=== PATIENT | male | born 1995 | race American Indian/Alaskan Native ===

== ENCOUNTER 2020-09-21 09:30 | Inpatient (IN) | payer SELFPAY ==
[2020-09-21] MEDS ORDERED: SODIUM CHLORIDE 0.9% 1000 ML 2,000 ML ONE (09:40)
[2020-09-21] MEDS ORDERED: fentaNYL 100 MCG/2 ML INJ IV ONE ×2 (09:56→11:50)
[2020-09-21] MEDS ORDERED: SODIUM CHLORIDE 0.9% 1000 ML 1,000 ML IV ONE (09:56)
[2020-09-21] MEDS ORDERED: ONDANSETRON 4 MG/2 ML INJ IV ONE (09:56)
--- NOTE | 2020-09-21 10:07 | Emergency Department Report ---
HPI - General Chief Complaint: Hyperglycemia Time Seen by Provider: 09/21/20 09:51 - HPI HPI: Room 7 The patient is a 25-year-old male present with a chief complaint of abdominal pain nausea vomiting. The patient has a history of type 1 diabetes and states he has been out of of his insulin for the past 1.5 days. Patient states this morning he developed midepigastric abdominal pain nausea and vomiting. The patient states he has been in DKA before and it feels the same way. ED Past Medical Hx - Past Medical History Hx Diabetes: Yes (Type 1) - Family History Family history: no significant - Social History Smoking Status: Never Smoker Substance Use Type: None (Denies illicit drug use) - Medications Home Medications: Home Medications Medication Instructions Recorded Confirmed Last Taken Type Insulin Aspart (Nf) [Novolog] 0 unit SQ AC 05/17/16 05/17/16 Unknown History Insulin Aspart Prot/Aspart(Nf) 18 units SQ QPM 05/17/16 05/17/16 05/15/16 History [NovoLOG Mix 70/30 VIAL] Insulin Aspart Prot/Aspart(Nf) 30 units SQ QAM 05/17/16 05/17/16 05/16/16 History [NovoLOG Mix 70/30 VIAL] Insulin NPH/Regular [NovoLIN 70/30] 18 unit SUB-Q QHS #30 units 05/19/16 Unknown Rx Insulin NPH/Regular [NovoLIN 70/30] 30 unit SUB-Q QAM #30 units 05/19/16 Unknown Rx ED Review of Systems ROS: Stated complaint: HIGH SUGAR/[place] Other details as noted in HPI Constitutional: no symptoms reported Eyes: denies: eye pain ENT: denies: throat pain Respiratory: no symptoms reported Cardiovascular: denies: chest pain Endocrine: no symptoms reported Gastrointestinal: abdominal pain, nausea, vomiting Musculoskeletal: denies: back pain Neurological: denies: headache Physical Exam - Physical Exam Vital Signs: Vital Signs 09/21/20 09:33 Temperature 97.8 F Pulse Rate 130 H Respiratory 28 H Rate Blood Pressure 142/100 O2 Sat by Pulse 100 Oximetry Physical Exam: GENERAL: The patient is well-developed well-nourished male lying on stretcher appearing to be in moderate discomfort. Patient vomiting frequently exhibiting Kussmaul's respiration HEENT: Normocephalic. Atraumatic. Extraocular motions are intact. NECK: Supple. Trachea midline CHEST/LUNGS: Clear to auscultation. Kussmaul respirations noted HEART/CARDIOVASCULAR: Regular. There is tachycardia. There is no gallop rub or murmur. ABDOMEN: Abdomen is soft, nontender. Patient has normal bowel sounds. There is no abdominal distention. SKIN: There is no rash. There is no edema. There is no diaphoresis. NEURO: The patient is awake, alert, and oriented. The patient is cooperative. The patient has normal speech MUSCULOSKELETAL: There is no evidence of acute injury. ED Course Vital Signs 09/21/20 09:33 Temperature 97.8 F Pulse Rate 130 H Respiratory 28 H Rate Blood Pressure 142/100 O2 Sat by Pulse 100 Oximetry ED Medical Decision Making - Lab Data Result diagrams: 09/21/20 10:13 09/21/20 10:13 Laboratory Tests 09/21/20 09/21/20 09/21/20 09:53 10:13 10:13 WBC 7.8 RBC 5.69 H Hgb 13.5 Hct 43.2 MCV 76 L MCH 24 L MCHC 31 L RDW 13.8 Plt Count 309 Lymph % (Auto) 23.5 [place] % (Auto) 4.0 Eos % (Auto) 0.4 Baso % (Auto) 0.6 Lymph # (Auto) 1.8 [place] # (Auto) 0.3 Eos # (Auto) 0.0 Baso # (Auto) 0.0 Seg Neutrophils % 71.5 H Seg Neutrophils # 5.6 VBG pH Sodium 138 Potassium 4.2 Chloride 97.3 L Carbon Dioxide 12 L Anion Gap 33 BUN 17 Creatinine 1.2 Estimated GFR > 60 BUN/Creatinine Ratio 14 Glucose 519 H* POC Glucose 395 H Calcium 10.2 Total Bilirubin 0.40 AST 15 ALT 20 Alkaline Phosphatase 134 H Total Creatine Kinase 84 CK-MB (CK-2) 1.4 CK-MB (CK-2) Rel Index 1.6 Troponin T < 0.010 Total Protein 9.0 H Albumin 4.2 Albumin/Globulin Ratio 0.9 Urine Color Urine Turbidity Urine pH Ur Specific [place] Urine Protein Urine Glucose (UA) Urine Ketones Urine Blood Urine Nitrite Urine Bilirubin Urine Urobilinogen Ur Leukocyte Esterase Urine WBC (Auto) Urine RBC (Auto) 09/21/20 09/21/20 10:13 Unknown WBC RBC Hgb Hct MCV MCH MCHC RDW Plt Count Lymph % (Auto) [place] % (Auto) Eos % (Auto) Baso % (Auto) Lymph # (Auto) [place] # (Auto) Eos # (Auto) Baso # (Auto) Seg Neutrophils % Seg Neutrophils # VBG pH 7.242 L Sodium Potassium Chloride Carbon Dioxide Anion Gap BUN Creatinine Estimated GFR BUN/Creatinine Ratio Glucose POC Glucose Calcium Total Bilirubin AST ALT Alkaline Phosphatase Total Creatine Kinase CK-MB (CK-2) CK-MB (CK-2) Rel Index Troponin T Total Protein Albumin Albumin/Globulin Ratio Urine Color Colorless Urine Turbidity Clear Urine pH 6.0 Ur Specific [place] 1.024 Urine Protein 100 mg/dl Urine Glucose (UA) >=500 Urine Ketones 80 Urine Blood Sm Urine Nitrite Neg Urine Bilirubin Neg Urine Urobilinogen < 2.0 Ur Leukocyte Esterase Neg Urine WBC (Auto) < 1.0 Urine RBC (Auto) 1.0 - Differential Diagnosis DKA, gastritis, hyperglycemia, UTI Critical care attestation.: If time is entered above; I have spent that time in minutes in the direct care of this critically ill patient, excluding procedure time. ED Disposition Clinical Impression: DKA (diabetic ketoacidoses) Disposition: - OP ADMIT IP TO THIS HOSP Is pt being admited?: Yes Does the pt Need Aspirin: No Condition: Fair Instructions: Diabetic Ketoacidosis (ED) Time of Disposition: 10:56 (Hospitalist paged (Dr Roman))
[2020-09-21 10:28] LABS: Basophils % (Auto) 0.6 % (0.0-1.8); Eosinophils % (Auto) 0.4 % (0.0-4.3); Hematocrit 43.2 % (35.5-45.6); Hemoglobin 13.5 gm/dl (11.8-15.2); Lymphocytes # (Auto) 1.8 K/mm3 (1.2-5.4); Lymphocytes % (Auto) 23.5 % (13.4-35.0); Mean Corpuscular HGB Conc 31 % (32-34); Mean Corpuscular Volume 76 fl (84-94); Monocytes # (Auto) 0.3 K/mm3 (0.0-0.8); Platelet Count 309 K/mm3 (140-440); Red Blood Count 5.69 M/mm3 (3.65-5.03); Red Cell Distribution Width 13.8 % (13.2-15.2)
[2020-09-21 10:50] LABS: Creatine Kinase MB 1.4 ng/mL (0.0-4.0)
[2020-09-21 10:51] LABS: Alanine Aminotransferase 20 units/L (7-56); Albumin 4.2 g/dL (3.9-5); BUN/Creatinine Ratio 14; Blood Urea Nitrogen 17 mg/dL (9-20); Calcium 10.2 mg/dL (8.4-10.2); Hemolysis Index 0
[2020-09-21] MEDS ORDERED: INSULIN REGULAR, HUMAN 100 UNITS in SODIUM CHLORIDE 0.9% 99 ML IV SCH (11:00)
[2020-09-21] MEDS ORDERED: METOCLOPRAMIDE 10 MG/2 ML INJ IV ONE (11:01)
[2020-09-21 11:29] LABS: Bilirubin,Urine NEG (Negative); Blood,Urine SM (Negative); Color,Urine Colorless (Yellow); Urobilinogen,Urine < 2.0 mg/dL (<2.0); WBC,Urine < 1.0 /HPF (0.0-6.0)
[2020-09-21 12:37] LABS: BUN/Creatinine Ratio 16; Blood Urea Nitrogen 18 mg/dL (9-20); Hemolysis Index 65
[2020-09-21] MEDS ORDERED: ACETAMINOPHEN 325 MG TAB PO PRN (13:06)
[2020-09-21] MEDS ORDERED: PROMETHAZINE 25 MG RECT SUPP PR PRN (13:06)
[2020-09-21] MEDS ORDERED: DEXTROSE 50% IN WATER (25GM) 50 ML SYRINGE IV PRN (13:08)
--- NOTE | 2020-09-21 13:20 | History and Physical Report ---
History of Present Illness Date of examination: 09/21/20 Date of admission: 09/21/20 10:57 Chief complaint: Abdominal pain nausea vomiting for 1 day. History of present illness: 23-year-old male with history of type 1 diabetes comes for high glucose levels. Patient states he missed his insulin for the past 2 days. Patient developed midepigastric and abdominal pain and nausea and vomiting. Patient states that he has had DKA in the past and feels like the same. His blood glucose levels have been elevated in the emergency room hence admission to the ICU for DKA The patient is a 25-year-old male present with a chief complaint of abdominal pain nausea vomiting. The patient has a history of type 1 diabetes and states he has been out of of his insulin for the past 1.5 days. Patient states this morning he developed midepigastric abdominal pain nausea and vomiting. The patient states he has been in DKA before and it feels the same way. Management. - Past Medical History Hx Diabetes: Yes (Type 1) - Family History Family history: no significant - Social History Smoking Status: Never Smoker Substance Use Type: None (Denies illicit drug use) - Medications Home Medications: Home Medications Medication Instructions Recorded Confirmed Last Taken Type Insulin Aspart (Nf) [Novolog] 0 unit SQ AC 05/17/16 05/17/16 Unknown History Insulin Aspart Prot/Aspart(Nf) 18 units SQ QPM 05/17/16 05/17/16 05/15/16 History [NovoLOG Mix 70/30 VIAL] Insulin Aspart Prot/Aspart(Nf) 30 units SQ QAM 05/17/16 05/17/16 05/16/16 History [NovoLOG Mix 70/30 VIAL] Insulin NPH/Regular [NovoLIN 70/30] 18 unit SUB-Q QHS #30 units 05/19/16 Unknown Rx Insulin NPH/Regular [NovoLIN 70/30] 30 unit SUB-Q QAM #30 units 05/19/16 Unknown Rx Review of Systems ROS: Stated complaint: HIGH SUGAR/[place] Other details as noted in HPI Constitutional: no symptoms reported Eyes: denies: eye pain ENT: denies: throat pain Respiratory: no symptoms reported Cardiovascular: denies: chest pain Endocrine: no symptoms reported Gastrointestinal: abdominal pain, nausea, vomiting Musculoskeletal: denies: back pain Neurological: denies: headache Medications and Allergies Allergies Allergy/AdvReac Type Severity Reaction Status Date / Time shellfish derived Allergy Swelling Verified 09/21/20 09:33 Home Medications Medication Instructions Recorded Confirmed Last Taken Type Insulin Aspart (Nf) [Novolog] 0 unit SQ AC 05/17/16 05/17/16 Unknown History Insulin Aspart Prot/Aspart(Nf) 18 units SQ QPM 05/17/16 05/17/16 05/15/16 Hist ory [NovoLOG Mix 70/30 VIAL] Insulin Aspart Prot/Aspart(Nf) 30 units SQ QAM 05/17/16 05/17/16 05/16/16 History [NovoLOG Mix 70/30 VIAL] Insulin NPH/Regular [NovoLIN 70/30] 18 unit SUB-Q QHS #30 units 05/19/16 Unknown Rx Insulin NPH/Regular [NovoLIN 70/30] 30 unit SUB-Q QAM #30 units 05/19/16 Unknown Rx Active Meds: Active Medications Insulin Human Regular 100 (units/ Sodium Chloride) 100 mls @ 6 mls/hr IV TITR MAURY; Protocol Last Admin: 09/21/20 11:50 Dose: 6 units/hr, 6 mls/hr Documented by: Exam - Constitutional Vitals: Temp Pulse Resp BP Pulse Ox 97.8 F 130 H 28 H 142/100 100 09/21/20 09:33 09/21/20 09:33 09/21/20 09:33 09/21/20 09:33 09/21/20 09:33 General appearance: Present: no acute distress, well-nourished - EENT Eyes: Present: PERRL ENT: hearing intact, clear oral mucosa - Neck Neck: Present: supple, normal ROM - Respiratory Respiratory effort: normal Respiratory: bilateral: CTA - Cardiovascular Heart rate: 88 Rhythm: regular Heart Sounds: Present: S1 & S2. Absent: rub, click - Extremities Extremities: pulses symmetrical, No edema Peripheral Pulses: within normal limits - Abdominal General gastrointestinal: Present: soft, non-tender, non-distended, normal bowel sounds Male genitourinary: Present: normal - Rectal Rectal Exam: deferred - Integumentary Integumentary: Present: clear, warm, dry - Musculoskeletal Musculoskeletal: gait normal, strength equal bilaterally - Psychiatric Psychiatric: appropriate mood/affect, intact judgment & insight - Neurologic Neurologic: CNII-XII intact, moves all extremities - Allied Health Allied health notes reviewed: nursing, case management HEART Score - HEART Score Troponin: Troponin T < 0.010 ng/mL (0.00-0.029) 09/21/20 10:13 Results - Labs CBC & Chem 7: 09/21/20 10:13 09/21/20 20:53 Labs: Laboratory Last Values WBC 7.8 K/mm3 (4.5-11.0) 09/21/20 10:13 RBC 5.69 M/mm3 (3.65-5.03) H 09/21/20 10:13 Hgb 13.5 gm/dl (11.8-15.2) 09/21/20 10:13 Hct 43.2 % (35.5-45.6) 09/21/20 10:13 MCV 76 fl (84-94) L 09/21/20 10:13 MCH 24 pg (28-32) L 09/21/20 10:13 MCHC 31 % (32-34) L 09/21/20 10:13 RDW 13.8 % (13.2-15.2) 09/21/20 10:13 Plt Count 309 K/mm3 (140-440) 09/21/20 10:13 Lymph % (Auto) 23.5 % (13.4-35.0) 09/21/20 10:13 [place] % (Auto) 4.0 % (0.0-7.3) 09/21/20 10:13 Eos % (Auto) 0.4 % (0.0-4.3) 09/21/20 10:13 Baso % (Auto) 0.6 % (0.0-1.8) 09/21/20 10:13 Lymph # (Auto) 1.8 K/mm3 (1.2-5.4) 09/21/20 10:13 [place] # (Auto) 0.3 K/mm3 (0.0-0.8) 09/21/20 10:13 Eos # (Auto) 0.0 K/mm3 (0.0-0.4) 09/21/20 10:13 Baso # (Auto) 0.0 K/mm3 (0.0-0.1) 09/21/20 10:13 Seg Neutrophils % 71.5 % (40.0-70.0) H 09/21/20 10:13 Seg Neutrophils # 5.6 K/mm3 (1.8-7.7) 09/21/20 10:13 VBG pH 7.242 (7.320-7.420) L 09/21/20 10:13 Sodium 138 mmol/L (137-145) 09/21/20 11:45 Potassium TNR 09/21/20 11:45 Chloride 100.1 mmol/L (98-107) 09/21/20 11:45 Carbon Dioxide TNR 09/21/20 11:45 Anion Gap TNR 09/21/20 11:45 BUN 18 mg/dL (9-20) 09/21/20 11:45 Creatinine 1.1 mg/dL (0.8-1.3) 09/21/20 11:45 Estimated GFR > 60 ml/min 09/21/20 11:45 BUN/Creatinine Ratio 16 % 09/21/20 11:45 Glucose 494 mg/dL (75-100) H 09/21/20 11:45 POC Glucose 395 mg/dL (70-105) H 09/21/20 09:53 Ketones Quantitative Small (Negative) 09/21/20 10:13 Calcium 10.0 mg/dL (8.4-10.2) 09/21/20 11:45 Phosphorus 4.30 mg/dL (2.5-4.5) 09/21/20 11:45 Magnesium 2.20 mg/dL (1.7-2.3) 09/21/20 11:45 Total Bilirubin 0.40 mg/dL (0.1-1.2) 09/21/20 10:13 AST 15 units/L (5-40) 09/21/20 10:13 ALT 20 units/L (7-56) 09/21/20 10:13 Alkaline Phosphatase 134 units/L (35-129) H 09/21/20 10:13 Total Creatine Kinase 84 units/L (55-170) 09/21/20 10:13 CK-MB (CK-2) 1.4 ng/mL (0.0-4.0) 09/21/20 10:13 CK-MB (CK-2) Rel Index 1.6 (0-4) 09/21/20 10:13 Troponin T < 0.010 ng/mL (0.00-0.029) 09/21/20 10:13 Total Protein 9.0 g/dL (6.3-8.2) H 09/21/20 10:13 Albumin 4.2 g/dL (3.9-5) 09/21/20 10:13 Albumin/Globulin Ratio 0.9 % 09/21/20 10:13 Urine Color Colorless (Yellow) 09/21/20 Unknown Urine Turbidity Clear (Clear) 09/21/20 Unknown Urine pH 6.0 (5.0-7.0) 09/21/20 Unknown Ur Specific [place] 1.024 (1.003-1.030) 09/21/20 Unknown Urine Protein 100 mg/dl mg/dL (Negative) 09/21/20 Unknown Urine Glucose (UA) >=500 mg/dL (Negative) 09/21/20 Unknown Urine Ketones 80 mg/dL (Negative) 09/21/20 Unknown Urine Blood Sm (Negative) 09/21/20 Unknown Urine Nitrite Neg (Negative) 09/21/20 Unknown Urine Bilirubin Neg (Negative) 09/21/20 Unknown Urine Urobilinogen < 2.0 mg/dL (<2.0) 09/21/20 Unknown Ur Leukocyte Esterase Neg (Negative) 09/21/20 Unknown Urine WBC (Auto) < 1.0 /HPF (0.0-6.0) 09/21/20 Unknown Urine RBC (Auto) 1.0 /HPF (0.0-6.0) 09/21/20 Unknown Short CBC 09/21/20 Range/Units 10:13 WBC 7.8 (4.5-11.0) K/mm3 Hgb 13.5 (11.8-15.2) gm/dl Hct 43.2 (35.5-45.6) % Plt Count 309 (140-440) K/mm3 BMP 09/21/20 09/21/20 10:13 11:45 Sodium 138 138 Potassium 4.2 TNR Chloride 97.3 L 100.1 Carbon Dioxide 12 L TNR BUN 17 18 Creatinine 1.2 1.1 Glucose 519 H* 494 H Calcium 10.2 10.0 Cardiac Enzymes 09/21/20 Range/Units 10:13 Total Creatine Kinase 84 (55-170) units/L CK-MB (CK-2) 1.4 (0.0-4.0) ng/mL Troponin T < 0.010 (0.00-0.029) ng/mL Liver Function 09/21/20 Range/Units 10:13 Total Bilirubin 0.40 (0.1-1.2) mg/dL AST 15 (5-40) units/L ALT 20 (7-56) units/L Alkaline Phosphatase 134 H (35-129) units/L Albumin 4.2 (3.9-5) g/dL Urine 09/21/20 Range/Units Unknown Urine Color Colorless (Yellow) Urine pH 6.0 (5.0-7.0) Ur Specific [place] 1.024 (1.003-1.030) Urine Protein 100 mg/dl (Negative) mg/dL Urine Glucose (UA) >=500 (Negative) mg/dL Short CBC 09/21/20 Range/Units 10:13 WBC 7.8 (4.5-11.0) K/mm3 Hgb 13.5 (11.8-15.2) gm/dl Hct 43.2 (35.5-45.6) % Plt Count 309 (140-440) K/mm3 BMP 09/21/20 09/21/20 09/21/20 10:13 11:45 15:31 Sodium 138 138 146 H D Potassium 4.2 TNR 4.5 Chloride 97.3 L 100.1 109.7 H Carbon Dioxide 12 L TNR 18 L BUN 17 18 18 Creatinine 1.2 1.1 1.1 Glucose 519 H* 494 H 218 H Calcium 10.2 10.0 9.8 09/21/20 09/21/20 09/21/20 17:16 19:11 20:53 Sodium 144 143 142 Potassium 4.5 4.8 5.0 Chloride 110.1 H 109.2 H 111.8 H Carbon Dioxide 15 L 15 L 14 L BUN 17 16 16 Creatinine 1.1 0.9 1.0 Glucose 160 H 213 H 219 H Calcium 9.8 9.7 9.7 Cardiac Enzymes 09/21/20 Range/Units 10:13 Total Creatine Kinase 84 (55-170) units/L CK-MB (CK-2) 1.4 (0.0-4.0) ng/mL Troponin T < 0.010 (0.00-0.029) ng/mL Liver Function 09/21/20 Range/Units 10:13 Total Bilirubin 0.40 (0.1-1.2) mg/dL AST 15 (5-40) units/L ALT 20 (7-56) units/L Alkaline Phosphatase 134 H (35-129) units/L Albumin 4.2 (3.9-5) g/dL Urine 09/21/20 Range/Units Unknown Urine Color Colorless (Yellow) Urine pH 6.0 (5.0-7.0) Ur Specific [place] 1.024 (1.003-1.030) Urine Protein 100 mg/dl (Negative) mg/dL Urine Glucose (UA) >=500 (Negative) mg/dL Assessment and Plan Assessment and plan: The high probability OF a clinically significant sudden or life-threatening deterioration of the cardiorespiratory system and endocrine system required my full and direct attention, intervention and postoperative management. The aggregate critical care time was 32 minutes. The time is in addition to time spent performing reported procedures but includes the followin: Data review and interpretation 2: Patient assessment and monitoring of vital signs 3: Documentation 4:: Medication orders and management Advance Directives: Yes (Full code) VTE prophylaxis?: Chemical Plan of care discussed with patient/family: Yes - Patient Problems (1) DKA (diabetic ketoacidoses) Current Visit: Yes Status: Acute Qualifiers: Diabetes mellitus type: type 1 Plan to address problem: DKA protocol IV insulin IV fluids Check hemoglobin A1c Emergency Medicine Physician consult Dietitian consult (2) Metabolic acidosis Current Visit: Yes Status: Acute Plan to address problem: IV normal saline (3) DVT prophylaxis Current Visit: Yes Status: Acute Plan to address problem: On heparin and GI prophylaxis
[2020-09-21] MEDS: INSULIN REGULAR, HUMAN 100 UNITS in SODIUM CHLORIDE 0.9% 99 ML IV SCH (14:00)
[2020-09-21] MEDS ORDERED: POTASSIUM CHLORIDE 10 MEQ 10 MEQ/100 ML BAG IV PRN (14:00)
[2020-09-21] MEDS ORDERED: METOCLOPRAMIDE 10 MG/2 ML INJ ONE (14:03)
[2020-09-21] MEDS ORDERED: FAMOTIDINE 20 MG/2 ML INJ IV ONE (14:45)
[2020-09-21] MEDS ORDERED: SODIUM CHLORIDE 0.9% 1000 ML 1,000 ML ONE (14:46)
[2020-09-21] MEDS ORDERED: POTASSIUM CHLORIDE 10 MEQ 0 MEQ/0 ML BAG IV ONE (14:46)
[2020-09-21] MEDS: FAMOTIDINE 20 MG/2 ML INJ IV SCH (15:07)
[2020-09-21] MEDS: D5W/0.45% NACL/KCL 20 MEQ 20 MEQ/1,000 ML BAG IV SCH (16:00)
[2020-09-21 16:14] LABS: BUN/Creatinine Ratio 16; Blood Urea Nitrogen 18 mg/dL (9-20); Calcium 9.8 mg/dL (8.4-10.2); Hemolysis Index 2
[2020-09-21] MEDS ORDERED: D5W/0.45% NACL/KCL 20 MEQ 20 MEQ/1,000 ML BAG IV ONE (16:18)
[2020-09-21] MEDS ORDERED: HYDROmorphone 1 MG/1 ML INJ ONE ×2 (17:19→23:33)
[2020-09-21 17:50] LABS: BUN/Creatinine Ratio 15; Blood Urea Nitrogen 17 mg/dL (9-20); Calcium 9.8 mg/dL (8.4-10.2); Hemolysis Index 9
[2020-09-21] MEDS: HYDROmorphone 1 MG/1 ML INJ IV PRN ×2 (18:00→23:52)
[2020-09-21 19:44] LABS: BUN/Creatinine Ratio 18; Blood Urea Nitrogen 16 mg/dL (9-20); Calcium 9.7 mg/dL (8.4-10.2); Hemolysis Index 5
[2020-09-21 21:36] LABS: BUN/Creatinine Ratio 16; Blood Urea Nitrogen 16 mg/dL (9-20); Calcium 9.7 mg/dL (8.4-10.2); Hemolysis Index 22
[2020-09-21] MEDS ORDERED: ONDANSETRON 4 MG/2 ML INJ ONE (23:33)
[2020-09-21] MEDS: ONDANSETRON 4 MG/2 ML INJ IV PRN (23:54)
[2020-09-22] MEDS ORDERED: D5W/0.45% NACL/KCL 20 MEQ 20 MEQ/1,000 ML BAG IV ONE ×2 (02:57→11:55)
[2020-09-22] MEDS: D5W/0.45% NACL/KCL 20 MEQ 20 MEQ/1,000 ML BAG IV SCH ×2 (03:20→10:58)
[2020-09-22 03:52] LABS: BUN/Creatinine Ratio 15; Blood Urea Nitrogen 17 mg/dL (9-20); Calcium 9.9 mg/dL (8.4-10.2); Hemolysis Index 7
[2020-09-22] MEDS ORDERED: ONDANSETRON 4 MG/2 ML INJ ONE ×2 (05:11→11:05)
[2020-09-22] MEDS ORDERED: HYDROmorphone 1 MG/1 ML INJ ONE ×4 (05:11→12:34)
[2020-09-22] MEDS: ONDANSETRON 4 MG/2 ML INJ IV PRN (05:15)
[2020-09-22] MEDS: HYDROmorphone 1 MG/1 ML INJ IV PRN ×3 (05:15→14:38)
[2020-09-22 05:32] LABS: BUN/Creatinine Ratio 18; Blood Urea Nitrogen 16 mg/dL (9-20); Calcium 9.8 mg/dL (8.4-10.2); Hemolysis Index 11
[2020-09-22] MEDS: FAMOTIDINE 20 MG/2 ML INJ IV SCH ×2 (06:29→11:05)
[2020-09-22] MEDS ORDERED: DEXTROSE 50% IN WATER (25GM) 50 ML SYRINGE IV PRN (09:30)
[2020-09-22] MEDS ORDERED: INSULIN GLARGINE 100 UNITS/ML SUB-Q SCH (09:30)
[2020-09-22] MEDS ORDERED: INSULIN LISPRO 100 UNIT/ML VIAL 3 mL SUB-Q ONE (09:50)
[2020-09-22] MEDS: INSULIN LISPRO 100 UNIT/ML VIAL 3 mL SUB-Q SCH ×2 (10:30→12:00)
[2020-09-22] MEDS: INSULIN REGULAR, HUMAN 100 UNITS in SODIUM CHLORIDE 0.9% 99 ML IV SCH (11:02)
[2020-09-22] MEDS ORDERED: FAMOTIDINE 20 MG/2 ML INJ IV ONE (11:06)
[2020-09-22] MEDS ORDERED: INSULIN LISPRO 100 UNIT/ML VIAL 3 mL SUB-Q SCH (11:30)
[2020-09-22] MEDS ORDERED: D5W IV ONE (11:54)
[2020-09-22] MEDS ORDERED: NACL IV ONE (11:54)
[2020-09-22 12:08] LABS: BUN/Creatinine Ratio 17; Blood Urea Nitrogen 15 mg/dL (9-20); Calcium 9.5 mg/dL (8.4-10.2); Hemolysis Index 82
[2020-09-22 12:17] VITALS: BP 150/92
--- NOTE | 2020-09-22 13:08 | Discharge Summary ---
Providers - Providers Date of Admission: 09/21/20 10:57 Attending physician: TIANNA DIAZ 09/21/20 13:06 Consult to Physician [CONS] Routine Comment: Consulting Provider: FRANCK HELMS Physician Instructions: Reason For Exam: DKA 09/21/20 13:08 Consult to Dietitian/Nutrition [CONS] Routine Physician Instructions: Reason For Exam: DKA Reason for Consult: Nutrition Recommendations Reason for Consult: Diet education Primary care physician: TELEPHONE OPERATOR Hospitalization Condition: Fair Disposition: DC-30 STILL A PATIENT Exam - Constitutional Vitals: Temp Pulse Resp BP Pulse Ox 97.8 F 88 18 150/92 100 09/21/20 09:33 09/22/20 12:14 09/22/20 12:14 09/22/20 12:14 09/22/20 12:14 Plan Follow up with: PRIMARY CARE, [Primary Care Provider] - 3-5 Days Prescriptions: Syringe-Needle,Insulin,0.5 ml [Insulin Syringe/Needle 0.5 ML] 1 each MC TID #1 box Insulin NPH/Regular [Novolin 70/30] 10 unit SUB-Q TIDAC #1 vial
[2020-09-22] MEDS ORDERED: SODIUM BICARB 8.4% 50 MEQ/50 ML SYRINGE IV ONE ×2 (14:00→14:22)
[2020-09-22 15:00] LABS: BUN/Creatinine Ratio 16; Blood Urea Nitrogen 14 mg/dL (9-20); Calcium 9.3 mg/dL (8.4-10.2); Hemolysis Index 8
== END 2020-09-22 16:00 | disposition home or self-care (01) | DRG 639 ==
LOC: ED 09:30 → CC1 10:57 → 3A 09-22 13:08
PROVIDERS: ADMIT Internal Medicine; ATTEND Internal Medicine
DX: E11.10 Type 2 diabetes mellitus with ketoacidosis without coma (principal); Z91.013 Allergy to seafood; Z79.4 Long term (current) use of insulin
CPT/HCPCS: 36415; 80048; 80053; 81001; 82010; 82550; 82553; 82805; 82962; 83036; 83735; 84100; 84484; 85025; G0378; J1170; J1815; J2405; J2765; J3010; J3480; J7030

== ENCOUNTER 2021-03-17 20:40 | Emergency (ER) | payer BC ==
[2021-03-17] MEDS ORDERED: ONDANSETRON 4 MG/2 ML INJ IV ONE (20:50)
[2021-03-17] MEDS ORDERED: SODIUM CHLORIDE 0.9% 1000 ML 1,000 ML IV ONE (20:50)
--- NOTE | 2021-03-17 20:50 | Event Note ---
ED Screening Note Date of service: 03/17/21 Time: 20:49 ED Screening Note: 25-year-old male with a past medical history of type 1 diabetes currently on insulin and history of DKA and HTN presents to the ER today with complaints of nausea, vomiting and abdominal pain since this morning This initial assessment/diagnostic orders/clinical plan/treatment(s) is/are subject to change based on patients health status, clinical progression and re- assessment by fellow clinical providers in the ED. Further treatment and workup at subsequent clinical providers discretion. Patient/guardian urged not to elope from the ED as their condition may be serious if not clinically assessed and managed. Initial orders include: Labs
[2021-03-17 21:04] LABS: Basophils # (Auto) 0.1 K/mm3 (0.0-0.1); Basophils % (Auto) 0.9 % (0.0-1.8); Eosinophils # (Auto) 0.1 K/mm3 (0.0-0.4); Eosinophils % (Auto) 1.1 % (0.0-4.3); Hematocrit 40.8 % (35.5-45.6); Hemoglobin 13.1 gm/dl (11.8-15.2); Lymphocytes # (Auto) 2.3 K/mm3 (1.2-5.4); Lymphocytes % (Auto) 25.2 % (13.4-35.0); Mean Corpuscular HGB Conc 32 % (32-34); Mean Corpuscular Volume 74 fl (84-94); Monocytes # (Auto) 0.6 K/mm3 (0.0-0.8); Monocytes % (Auto) 6.8 % (0.0-7.3); Platelet Count 405 K/mm3 (140-440); Red Blood Count 5.48 M/mm3 (3.65-5.03); Red Cell Distribution Width 13.5 % (13.2-15.2)
[2021-03-17] MEDS ORDERED: HYDROmorphone 1 MG/1 ML INJ IV ONE (21:20)
[2021-03-17] MEDS ORDERED: METOCLOPRAMIDE 10 MG/2 ML INJ IV ONE (21:20)
--- NOTE | 2021-03-17 21:22 | Emergency Department Report ---
ED General Adult HPI - General Chief complaint: Nausea/Vomiting/Diarrhea Stated complaint: NAUSEA/VOMITING/STOMACH PAIN PUI?: No Time Seen by Provider: 03/17/21 20:48 Source: patient, EMS ( EMS documentation not available at time of chart dictation ), old records reviewed Mode of arrival: Ambulatory Limitations: No Limitations - History of Present Illness Initial comments: The patient was evaluated in the emergency department for symptoms described in the history of present illness. He/she was evaluated in the context of the global COVID-19 pandemic, which necessitated consideration that the patient might be at risk for infection with the virus that causes COVID-19. Institutional protocols and algorithms that pertain to the evaluation of patients at risk for COVID-19 are in a state of rapid change based on informatio n released by regulatory bodies including the CDC and federal and state organizations. These policies and algorithms were followed during the patient's care in the emergency department. Please note that these policies, procedures and recommendations changed on a rapid basis. Patient is a 25-year-old gentleman. He has a history of type 1 diabetes. Recent hemoglobin A1c 13. He also has a history of noncompliance. He presents to the ER today with a complaint of abdominal cramping, nausea vomiting, sweating, malaise and fatigue. No fever. Mild headache. No loss of taste or smell. No urinary symptoms. No testicular pain. Does not have a diagnosis of gastroparesis that he is aware of. He subjectively feels like he is in diabetic ketoacidosis. His symptoms were much improved in the emergency room with pain medication and nausea medication. -: Gradual, days(s) Location: head, abdomen Quality: aching Consistency: constant Improves with: medication Worsens with: movement - Related Data Home Medications Medication Instructions Recorded Confirmed Last Taken Insulin Aspart (Nf) [Novolog] 0 unit SQ AC 05/17/16 05/17/16 Unknown Insulin Aspart Prot/Aspart(Nf) 18 units SQ QPM 05/17/16 05/17/16 05/15/16 [NovoLOG Mix 70/30 VIAL] Insulin Aspart Prot/Aspart(Nf) 30 units SQ QAM 05/17/16 05/17/16 05/16/16 [NovoLOG Mix 70/30 VIAL] Previous Rx's Medication Instructions Recorded Last Taken Type Insulin NPH/Regular [NovoLIN 70/30] 18 unit SUB-Q QHS #30 units 05/19/16 Unknown Rx Insulin NPH/Regular [NovoLIN 70/30] 30 unit SUB-Q QAM #30 units 05/19/16 Unknown Rx Acetaminophen [Non-Aspirin Extra 500 mg PO Q6HR PRN #30 tablet 03/18/21 Unknown Rx Strength] Maury Root [Maury] 250 mg PO QID PRN #30 capsule 03/18/21 Unknown Rx Insulin NPH/Regular [NovoLIN 70/30] 10 unit SUB-Q TIDAC #1 vial 03/18/21 Unknown Rx Metoclopramide [Reglan] 10 mg PO QID PRN #30 tablet 03/18/21 Unknown Rx Promethazine [Phenergan SUPPOS] 50 mg AL Q6H PRN #15 supp.rect 03/18/21 Unknown Rx Syringe-Needle,Insulin,0.5 ml 1 each MC TID #1 box 03/18/21 Unknown Rx [Insulin Syringe/Needle 0.5 ML] Allergies Allergy/AdvReac Type Severity Reaction Status Date / Time shellfish derived Allergy Swelling Verified 09/21/20 09:33 ED Review of Systems ROS: Stated complaint: NAUSEA/VOMITING/STOMACH PAIN Other details as noted in HPI Constitutional: malaise, weakness. denies: fever Eyes: denies: eye discharge ENT: denies: epistaxis Respiratory: denies: cough Cardiovascular: denies: syncope Gastrointestinal: abdominal pain, nausea, vomiting Genitourinary: denies: dysuria Neurological: headache, weakness Psychiatric: anxiety ED Past Medical Hx - Past Medical History Previous Medical History?: Yes Hx Hypertension: Yes Hx Congestive Heart Failure: No Hx Diabetes: Yes (Type 1) Hx Asthma: No Hx COPD: No - Surgical History Past Surgical History?: No Hx Open Heart Surgery: No Hx Cholecystectomy: No Hx Appendectomy: No Hx Breast Surgery: No - Social History Smoking Status: Never Smoker Substance Use Type: Alcohol - Medications Home Medications: Home Medications Medication Instructions Recorded Confirmed Last Taken Type Insulin Aspart (Nf) [Novolog] 0 unit SQ AC 05/17/16 05/17/16 Unknown History Insulin Aspart Prot/Aspart(Nf) 18 units SQ QPM 05/17/16 05/17/16 05/15/16 History [NovoLOG Mix 70/30 VIAL] Insulin Aspart Prot/Aspart(Nf) 30 units SQ QAM 05/17/16 05/17/16 05/16/16 History [NovoLOG Mix 70/30 VIAL] Insulin NPH/Regular [NovoLIN 70/30] 18 unit SUB-Q QHS #30 units 05/19/16 U nknown Rx Insulin NPH/Regular [NovoLIN 70/30] 30 unit SUB-Q QAM #30 units 05/19/16 Unknown Rx Acetaminophen [Non-Aspirin Extra 500 mg PO Q6HR PRN #30 tablet 03/18/21 Unknown Rx Strength] Maury Root [Maury] 250 mg PO QID PRN #30 capsule 03/18/21 Unknown Rx Insulin NPH/Regular [NovoLIN 70/30] 10 unit SUB-Q TIDAC #1 vial 03/18/21 Unknown Rx Metoclopramide [Reglan] 10 mg PO QID PRN #30 tablet 03/18/21 Unknown Rx Promethazine [Phenergan SUPPOS] 50 mg AL Q6H PRN #15 supp.rect 03/18/21 Unknown Rx Syringe-Needle,Insulin,0.5 ml 1 each MC TID #1 box 03/18/21 Unknown Rx [Insulin Syringe/Needle 0.5 ML] ED Physical Exam - General Limitations: No Limitations General appearance: alert, anxious, in distress - Head Head exam: Present: atraumatic, normocephalic - Eye Eye exam: Present: normal appearance, EOMI. Absent: nystagmus - ENT ENT exam: Present: normal exam, normal orophraynx, mucous membranes moist, normal external ear exam - Neck Neck exam: Present: normal inspection, full ROM. Absent: tenderness, meningism us - Respiratory Respiratory exam: Present: normal lung sounds bilaterally. Absent: respiratory distress, wheezes, rales, rhonchi, stridor, decreased breath sounds - Cardiovascular Cardiovascular Exam: Present: normal rhythm, tachycardia, normal heart sounds. Absent: bradycardia, irregular rhythm, systolic murmur, diastolic murmur, rubs, gallop - GI/Abdominal GI/Abdominal exam: Present: soft, tenderness, other (Mild diffuse abdominal tenderness, without rebound, guarding or peritoneal signs). Absent: distended, guarding, rebound, rigid, pulsatile mass - Rectal Rectal exam: Present: deferred - Extremities Exam Extremities exam: Present: normal inspection, full ROM, other (2+ pulses noted in the bilateral upper and lower extremities. There is no palpable cord. negative Homans sign. Muscular compartments are soft. The pelvis is stable.). Absent: pedal edema, calf tenderness - Back Exam Back exam: Present: normal inspection, full ROM. Absent: tenderness, CVA tenderness (R), CVA tenderness (L), paraspinal tenderness, vertebral tenderness - Neurological Exam Neurological exam: Present: alert, normal gait, other (No facial droop. Tongue midline. Extraocular movements intact bilaterally. Facial sensation intact to light touch in V1, V2, V3 distribution bilaterally. 5 and a 5 strength in 4 extremities. Sensation intact to light touch in 4 extremities.). Absent: motor sensory deficit - Psychiatric Psychiatric exam: Present: anxious - Skin Skin exam: Present: warm, dry, intact, normal color. Absent: rash ED Course Vital Signs 03/17/21 03/17/21 03/18/21 20:47 23:42 01:00 Temperature 97.4 F L Pulse Rate 126 H 64 98 H Respiratory 18 16 16 Rate Blood Pressure 136/95 Blood Pressure 117/64 102/63 [Left] O2 Sat by Pulse 100 100 100 Oximetry - Reevaluation(s) Reevaluation #1: 03/17/21 23:07 Differential diagnosis, including but not limited to: Diabetic ketoacidosis, gastroparesis, cannabinoid hyperemesis syndrome, colitis, diverticulitis, appendicitis, perforated viscus, dehydration, cyclic vomiting syndrome Assessment and plan: 25-year-old gentleman, presented with tachycardia, sweating, abdominal pain, nausea and vomiting, does not have anion gap acidosis, this is most likely gastroparesis. Patient states he does not consume marijuana. He is currently sleeping comfortably on stretcher, heart rate 102 bpm. Lactic acid is likely a type II lactic acidosis/type B lactic acidosis. History and physical are not consistent with invasive bacterial infection. IV fluids ordered, urinalysis pending, CT scan abdomen pelvis pending, reassess after initial data points 03/17/21 23:08 Reevaluation #2: 03/18/21 00:35 Patient in no acute distress. No active vomiting. Repeat lactic acid pending. Urinalysis pending. CT scan of the abdomen pelvis performed, pending interpretation Reevaluation #3: 03/18/21 01:29 Final reassessment. Tachycardia resolved. Belly soft on repeat exam. Counseled patient regarding significance of findings, and likelihood that he has underlying gastroparesis. He has articulated understanding. We will discharge with pain medicine nausea medicine, and instructions to follow-up as an outpatient. ED Medical Decision Making - Lab Data Result diagrams: 03/17/21 20:55 03/17/21 20:55 Vital Signs 03/17/21 20:47 Temperature 97.4 F L Pulse Rate 126 H Respiratory 18 Rate Blood Pressure 136/95 O2 Sat by Pulse 100 Oximetry Lab Results 03/17/21 03/17/21 03/17/21 Range/Units 20:55 20:55 20:55 WBC 9.2 (4.5-11.0) K/mm3 RBC 5.48 H (3.65-5.03) M/mm3 Hgb 13.1 (11.8-15.2) gm/dl Hct 40.8 (35.5-45.6) % MCV 74 L (84-94) fl MCH 24 L (28-32) pg MCHC 32 (32-34) % RDW 13.5 (13.2-15.2) % Plt Count 405 (140-440) K/mm3 Lymph % (Auto) 25.2 (13.4-35.0) % Childress % (Auto) 6.8 (0.0-7.3) % Eos % (Auto) 1.1 (0.0-4.3) % Baso % (Auto) 0.9 (0.0-1.8) % Lymph # (Auto) 2.3 (1.2-5.4) K/mm3 Childress # (Auto) 0.6 (0.0-0.8) K/mm3 Eos # (Auto) 0.1 (0.0-0.4) K/mm3 Baso # (Auto) 0.1 (0.0-0.1) K/mm3 Seg Neutrophils % 66.0 (40.0-70.0) % Seg Neutrophils # 6.1 (1.8-7.7) K/mm3 PT (12.2-14.9) Sec. INR (0.87-1.13) VBG pH (7.320-7.420) Sodium 138 (137-145) mmol/L Potassium 4.1 (3.6-5.0) mmol/L Chloride 96.9 L (98-107) mmol/L Carbon Dioxide 29 (22-30) mmol/L Anion Gap 16 mmol/L BUN 14 (9-20) mg/dL Creatinine 0.8 (0.8-1.3) mg/dL Estimated GFR > 60 ml/min BUN/Creatinine Ratio 18 % Glucose 239 H (75-100) mg/dL Ketones Quantitative Negative (Negative) Lactic Acid (0.7-2.0) mmol/L Calcium 9.8 (8.4-10.2) mg/dL Magnesium (1.7-2.3) mg/dL Total Bilirubin 0.30 (0.1-1.2) mg/dL Direct Bilirubin < 0.2 (0-0.2) mg/dL Indirect Bilirubin 0.1 mg/dL AST 19 (5-40) units/L ALT 25 (7-56) units/L Alkaline Phosphatase 105 (35-129) units/L Total Creatine Kinase (55-170) units/L Total Protein 7.2 (6.3-8.2) g/dL Albumin 3.8 L (3.9-5) g/dL Albumin/Globulin Ratio 1.1 % Lipase 8 L (13-60) units/L 03/17/21 03/17/21 03/17/21 Range/Units 21:27 21:27 21:27 WBC (4.5-11.0) K/mm3 RBC (3.65-5.03) M/mm3 Hgb (11.8-15.2) gm/dl Hct (35.5-45.6) % MCV (84-94) fl MCH (28-32) pg MCHC (32-34) % RDW (13.2-15.2) % Plt Count (140-440) K/mm3 Lymph % (Auto) (13.4-35.0) % Childress % (Auto) (0.0-7.3) % Eos % (Auto) (0.0-4.3) % Baso % (Auto) (0.0-1.8) % Lymph # (Auto) (1.2-5.4) K/mm3 Childress # (Auto) (0.0-0.8) K/mm3 Eos # (Auto) (0.0-0.4) K/mm3 Baso # (Auto) (0.0-0.1) K/mm3 Seg Neutrophils % (40.0-70.0) % Seg Neutrophils # (1.8-7.7) K/mm3 PT (12.2-14.9) Sec. INR (0.87-1.13) VBG pH 7.467 H (7.320-7.420) Sodium (137-145) mmol/L Potassium (3.6-5.0) mmol/L Chloride (98-107) mmol/L Carbon Dioxide (22-30) mmol/L Anion Gap mmol/L BUN (9-20) mg/dL Creatinine (0.8-1.3) mg/dL Estimated GFR ml/min BUN/Creatinine Ratio % Glucose (75-100) mg/dL Ketones Quantitative (Negative) Lactic Acid 3.10 H* (0.7-2.0) mmol/L Calcium (8.4-10.2) mg/dL Magnesium 1.80 (1.7-2.3) mg/dL Total Bilirubin (0.1-1.2) mg/dL Direct Bilirubin (0-0.2) mg/dL Indirect Bilirubin mg/dL AST (5-40) units/L ALT (7-56) units/L Alkaline Phosphatase (35-129) units/L Total Creatine Kinase 124 (55-170) units/L Total Protein (6.3-8.2) g/dL Albumin (3.9-5) g/dL Albumin/Globulin Ratio % Lipase (13-60) units/L 03/17/21 Range/Units 21:27 WBC (4.5-11.0) K/mm3 RBC (3.65-5.03) M/mm3 Hgb (11.8-15.2) gm/dl Hct (35.5-45.6) % MCV (84-94) fl MCH (28-32) pg MCHC (32-34) % RDW (13.2-15.2) % Plt Count (140-440) K/mm3 Lymph % (Auto) (13.4-35.0) % Childress % (Auto) (0.0-7.3) % Eos % (Auto) (0.0-4.3) % Baso % (Auto) (0.0-1.8) % Lymph # (Auto) (1.2-5.4) K/mm3 Childress # (Auto) (0.0-0.8) K/mm3 Eos # (Auto) (0.0-0.4) K/mm3 Baso # (Auto) (0.0-0.1) K/mm3 Seg Neutrophils % (40.0-70.0) % Seg Neutrophils # (1.8-7.7) K/mm3 PT 12.4 (12.2-14.9) Sec. INR 0.93 (0.87-1.13) VBG pH (7.320-7.420) Sodium (137-145) mmol/L Potassium (3.6-5.0) mmol/L Chloride (98-107) mmol/L Carbon Dioxide (22-30) mmol/L Anion Gap mmol/L BUN (9-20) mg/dL Creatinine (0.8-1.3) mg/dL Estimated GFR ml/min BUN/Creatinine Ratio % Glucose (75-100) mg/dL Ketones Quantitative (Negative) Lactic Acid (0.7-2.0) mmol/L Calcium (8.4-10.2) mg/dL Magnesium (1.7-2.3) mg/dL Total Bilirubin (0.1-1.2) mg/dL Direct Bilirubin (0-0.2) mg/dL Indirect Bilirubin mg/dL AST (5-40) units/L ALT (7-56) units/L Alkaline Phosphatase (35-129) units/L Total Creatine Kinase (55-170) units/L Total Protein (6.3-8.2) g/dL Albumin (3.9-5) g/dL Albumin/Globulin Ratio % Lipase (13-60) units/L - EKG Data -: EKG Interpreted by Ca EKG shows normal: sinus rhythm Rate: tachycardia - EKG Data 03/17/21 23:04 Sinus rhythm, tachycardia, 102 bpm. Normal axis, QTC 457 ms. High left ventricular voltage. Normal P wave axis. Not a STEMI. - Radiology Data Radiology results: pending, report reviewed, image reviewed [facility] [address] [place] [address] Cat Scan Report Signed Patient: LAURA RODRIGUEZ MR#: [id number] : 1995 Acct:[id number] Age/Sex: 25 / M ADM Date: 03/17/21 Loc: ED Attending Dr: Ordering Physician: JESUS MANUEL MCKEON MD Date of Service: 03/17/21 Procedure(s): CT abdomen pelvis wo con Accession Number(s): [id number] cc: JESUS MANUEL MCKEON MD CT ABDOMEN AND PELVIS WITHOUT CONTRAST INDICATION / CLINICAL INFORMATION: abd pain n/v. TECHNIQUE: Axial CT images were obtained through the abdomen and pelvis without IV contrast. All CT scans at this location are performed using CT dose reduction for ALARA by means of automated exposure control. COMPARISON: None available. FINDINGS: LOWER CHEST: No significant abnormality. LIVER: No significant abnormality. GALLBLADDER: No significant abnormality. BILE DUCTS: No significant abnormality. PANCREAS: No significant abnormality. SPLEEN: No significant abnormality. ADRENALS: No significant abnormality. RIGHT KIDNEY and URETER: No significant abnormality. LEFT KIDNEY and URETER: No significant abnormality. STOMACH and SMALL BOWEL: No significant abnormality. COLON: No significant abnormality. APPENDIX: Not definitively seen, but there are no findings to suggest acute appendicitis. PERITONEUM: No free fluid. No free air. No fluid collection. LYMPH NODES: No significant adenopathy. AORTA and ARTERIES: No significant abnormality. IVC and VEINS: No significant abnormality. URINARY BLADDER: No significant abnormality. REPRODUCTIVE ORGANS: No significant abnormality. ADDITIONAL FINDINGS: None. SKELETAL SYSTEM: No acute abnormality. A dystrophic calcification is seen adjacent to the left inferior pubic ramus, possibly sequela of prior injury. IMPRESSION: 1. No acute process identified within the abdomen or pelvis to account for patient's symptoms, though evaluation is slightly degraded by paucity of intra-abdominal fat and lack of intravenous contrast. Signer Name: Urmila aDrby MD Signed: 03/18/2021 12:36 AM Workstation Name: [id number] Transcribed By: [facility] Dictated By: Urmila Darby MD Electronically Authenticated By: Urmila Darby MD Signed Date/Time: 03/18/2135 DD/ Critical care attestation.: If time is entered above; I have spent that time in minutes in the direct care of this critically ill patient, excluding procedure time. ED Disposition Clinical Impression: Acute abdominal pain, History of diabetes mellitus, type I Nausea and vomiting Qualifiers: Vomiting type: unspecified Vomiting Intractability: non-intractable Qualified Code(s): R11.2 - Nausea with vomiting, unspecified Disposition: DC-01 TO HOME OR SELFCARE Is pt being admited?: No Does the pt Need Aspirin: No Condition: Good Instructions: Abdominal Pain, Adult, Gastroparesis Additional Instructions: Symptoms likely coming from gastroparesis, likely stemming from patient's presumed poorly controlled type 1 diabetes. Recommend that patient take insulin as prescribed, take the pain medication, nausea medication as needed and prescribed. Patient may take the Reglan and maury tablets as needed for nausea and vomiting, and Phenergan medication as needed for intractable nausea and vomiting. Avoid consumption of Motrin, ibuprofen, Naprosyn, Aleve, heavy and spicy foods. Avoid consumption of tobacco, smoke products, and alcohol. Please take the insulin as prescribed. We recommend follow-up with your primary care doctor in 2 to 3 days for repeat checkup and evaluation. Please have a primary care doctor contact the medical records department to obtain copies of laboratory studies and radiology studies to follow-up on nonemergent incidental findings. Please return to the emergency room right away with new pain, worsened pain, migration of pain, projectile vomiting, change in mental status, confusion, inability to tolerate liquid feeds, new, worsened or different symptoms not present on the initial emergency room evaluation. Prescriptions: Maury Root [Maury] 250 mg PO QID PRN #30 capsule PRN Reason: Nausea Syringe-Needle,Insulin,0.5 ml [Insulin Syringe/Needle 0.5 ML] 1 each MC TID #1 box Acetaminophen [Non-Aspirin Extra Strength] 500 mg PO Q6HR PRN #30 tablet PRN Reason: Pain , Severe (7-10) Insulin NPH/Regular [NovoLIN 70/30] 10 unit SUB-Q TIDAC #1 vial Promethazine [Phenergan SUPPOS] 50 mg AL Q6H PRN #15 supp.rect PRN Reason: Nausea Metoclopramide [Reglan] 10 mg PO QID PRN #30 tablet PRN Reason: Nausea Referrals: MATILDE COLEMAN MD [Staff Physician] - 3-5 Days [facility] [Provider Group] - 3-5 Days Forms: Work/School Release Form(ED)
[2021-03-17 21:34] LABS: Alanine Aminotransferase 25 units/L (7-56); Albumin 3.8 g/dL (3.9-5); BUN/Creatinine Ratio 18; Blood Urea Nitrogen 14 mg/dL (9-20); Calcium 9.8 mg/dL (8.4-10.2); Hemolysis Index 17
[2021-03-17 21:47] LABS: Bilirubin,Direct < 0.2 mg/dL (0-0.2)
[2021-03-17 21:54] LABS: INR 0.93 (0.87-1.13)
[2021-03-17] MEDS ORDERED: LACTATED RINGERS 2,000 ML IV ONE (22:59)
--- NOTE | 2021-03-18 00:40 | Cat Scan Report ---
CT ABDOMEN AND PELVIS WITHOUT CONTRAST INDICATION / CLINICAL INFORMATION: abd pain n/v. TECHNIQUE: Axial CT images were obtained through the abdomen and pelvis without IV contrast. All CT scans at [facility] location are performed using CT dose reduction for ALARA by means of automated exposure control. COMPARISON: None available. FINDINGS: LOWER CHEST: No significant abnormality. LIVER: No significant abnormality. GALLBLADDER: No significant abnormality. BILE DUCTS: No significant abnormality. PANCREAS: No significant abnormality. SPLEEN: No significant abnormality. ADRENALS: No significant abnormality. RIGHT KIDNEY and URETER: No significant abnormality. LEFT KIDNEY and URETER: No significant abnormality. STOMACH and SMALL BOWEL: No significant abnormality. COLON: No significant abnormality. APPENDIX: Not definitively seen, but there are no findings to suggest acute appendicitis. PERITONEUM: No free fluid. No free air. No fluid collection. LYMPH NODES: No significant adenopathy. AORTA and ARTERIES: No significant abnormality. IVC and VEINS: No significant abnormality. URINARY BLADDER: No significant abnormality. REPRODUCTIVE ORGANS: No significant abnormality. ADDITIONAL FINDINGS: None. SKELETAL SYSTEM: No acute abnormality. A dystrophic calcification is seen adjacent to the left inferi or pubic ramus, possibly sequela of prior injury. IMPRESSION: 1. No acute process identified within the abdomen or pelvis to account for patient's symptoms, though evaluation is slightly degraded by paucity of intra-abdominal fat and lack of intravenous contrast. Signer Name: Urmila Darby MD Signed: 03/18/2021 12:36 AM Workstation Name: [id number]
[2021-03-18 01:02] VITALS: BP 102/63
--- NOTE | 2021-03-20 12:51 | Electrocardiograph Report ---
[facility] Test Date: 2021-03-17 Test Time: 22:00:41 Pat Name: LAURA RODRIGUEZ Department: Room: Gender: M Sales Closer: EHSAN : 1995 Requested By: JESUS MANUEL MCKEON Order Number: [id number] Reading MD: [employer] Measurements Intervals [place] Rate: 102 P: 68 NH: 140 QRS: 79 QRSD: 88 T: 268 QT: 349 QTc: 457 Interpretive Statements Sinus tachycardia Probable left atrial enlargement Abnormal T, consider ischemia, diffuse leads No previous ECG available for comparison Electronically Signed On 03-20-2021 12:51:24 EDT by [employer]
== END 2021-03-18 01:44 | disposition home or self-care (01) ==
LOC: ED 20:40
DX: R11.2 Nausea with vomiting, unspecified (principal); R10.84 Generalized abdominal pain; E10.8 Type 1 diabetes mellitus with unspecified complications; I10 Essential (primary) hypertension; Z79.4 Long term (current) use of insulin; Z79.899 Other long term (current) drug therapy; Z91.013 Allergy to seafood
CPT/HCPCS: 36415; 74176; 80048; 80076; 82010; 82140; 82550; 82805; 82962; 83690; 83735; 85025; 85610; 93005; 96361; 96374; 96375; 99284; J1170; J2765; J7030; J7120

== ENCOUNTER 2021-05-29 06:37 | Observation (INO) | payer BC ==
[2021-05-29] MEDS ORDERED: ONDANSETRON 4 MG/2 ML INJ IV ONE (07:20)
[2021-05-29] MEDS ORDERED: LACTATED RINGERS 1,000 ML IV ONE ×3 (07:25→10:45)
[2021-05-29] MEDS ORDERED: MORPHINE 4 MG/1 ML INJ IV ONE (07:25)
--- NOTE | 2021-05-29 07:26 | Emergency Department Report ---
ED General Adult HPI - General Chief complaint: Nausea/Vomiting/Diarrhea Stated complaint: NAUSEA AND VOMITING PUI?: No Time Seen by Provider: 05/29/21 07:24 Source: patient, RN notes reviewed, old records reviewed Mode of arrival: Stretcher Limitations: No Limitations - History of Present Illness Initial comments: The patient is a 26-year-old gentleman. I have evaluated this patient in the past. He has a history of type 1 diabetes, gastroparesis, and cannabis use. He presents to the ER today with a complaint of abdominal cramping, nausea vomiting, profuse nausea and vomiting, initially clear, then green, then yellow, and now blood-tinged. He denies dietary indiscretions. He occasionally smokes marijuana. He reports that he feels very anxious. He is not sure if his symptoms get better with a hot bath or hot shower. He denies testicular pain and urinary symptoms. He reports feeling very anxious. He currently denies headache, neck pain, chest pain, shortness of breath. He has abdominal cramping, nausea, vomiting, weakness and generalized extremity cramping. -: Gradual, hour(s), days(s) Location: abdomen Radiation: non-radiation Quality: aching Consistency: constant Improves with: medication (Improved with haloperidol) Worsens with: eating - Related Data Home Medications Medication Instructions Recorded Confirmed Last Taken Insulin Aspart (Nf) [Novolog] 0 unit SQ AC 05/17/16 05/17/16 Unknown Insulin Aspart Prot/Aspart(Nf) 18 units SQ QPM 05/17/16 05/17/16 05/15/16 [NovoLOG Mix 70/30 VIAL] Insulin Aspart Prot/Aspart(Nf) 30 units SQ QAM 05/17/16 05/17/16 05/16/16 [NovoLOG Mix 70/30 VIAL] Previous Rx's Medication Instructions Recorded Last Taken Type Insulin NPH/Regular [NovoLIN 70/30] 18 unit SUB-Q QHS #30 units 05/19/16 Unknown Rx Insulin NPH/Regular [NovoLIN 70/30] 30 unit SUB-Q QAM #30 units 05/19/16 Unknown Rx Acetaminophen [Non-Aspirin Extra 500 mg PO Q6HR PRN #30 tablet 03/18/21 Unknown Rx Strength] Danita Root [Danita] 250 mg PO QID PRN #30 capsule 03/18/21 Unknown Rx Insulin NPH/Regular [NovoLIN 70/30] 10 unit SUB-Q TIDAC #1 vial 03/18/21 Unknown Rx Metoclopramide [Reglan] 10 mg PO QID PRN #30 tablet 03/18/21 Unknown Rx Promethazine [Phenergan SUPPOS] 50 mg MO Q6H PRN #15 supp.rect 03/18/21 Unknown Rx Syringe-Needle,Insulin,0.5 ml 1 each MC TID #1 box 03/18/21 Unknown Rx [Insulin Syringe/Needle 0.5 ML] Allergies Allergy/AdvReac Type Severity Reaction Status Date / Time shellfish derived Allergy Swelling Verified 05/29/21 07:08 ED Review of Systems ROS: Stated complaint: NAUSEA AND VOMITING Other details as noted in HPI Constitutional: malaise, weakness, other (Denies loss of taste and smell). denies: fever Eyes: denies: eye discharge ENT: denies: epistaxis Respiratory: denies: cough Cardiovascular: denies: chest pain Gastrointestinal: abdominal pain, nausea, vomiting, hematemesis. denies: melena, hematochezia Genitourinary: denies: dysuria, testicular pain Neurological: weakness Psychiatric: anxiety Hematological/Lymphatic: denies: easy bleeding ED Past Medical Hx - Past Medical History Hx Hypertension: Yes Hx Congestive Heart Failure: No Hx Diabetes: Yes (Type 1) Hx Asthma: No Hx COPD: No - Surgical History Past Surgical History?: No Hx Open Heart Surgery: No Hx Cholecystectomy: No Hx Appendectomy: No Hx Breast Surgery: No - Social History Smoking Status: Never Smoker Substance Use Type: Alcohol - Medications Home Medications: Home Medications Medication Instructions Recorded Confirmed Last Taken Type Insulin Aspart (Nf) [Novolog] 0 unit SQ AC 05/17/16 05/17/16 Unknown History Insulin Aspart Prot/Aspart(Nf) 18 units SQ QPM 05/17/16 05/17/16 05/15/16 History [NovoLOG Mix 70/30 VIAL] Insulin Aspart Prot/Aspart(Nf) 30 units SQ QAM 05/17/16 05/17/16 05/16/16 History [NovoLOG Mix 70/30 VIAL] Insulin NPH/Regular [NovoLIN 70/30] 18 unit SUB-Q QHS #30 units 05/19/16 Unknown Rx Insulin NPH/Regular [NovoLIN 70/30] 30 unit SUB-Q QAM #30 units 05/19/16 Unknown Rx Acetaminophen [Non-Aspirin Extra 500 mg PO Q6HR PRN #30 tablet 03/18/21 Unknown Rx Strength] Danita Root [Danita] 250 mg PO QID PRN #30 capsule 03/18/21 Unknown Rx Insulin NPH/Regular [NovoLIN 70/30] 10 unit SUB-Q TIDAC #1 vial 03/18/21 Unknown Rx Metoclopramide [Reglan] 10 mg PO QID PRN #30 tablet 03/18/21 Unknown Rx Promethazine [Phenergan SUPPOS] 50 mg MO Q6H PRN #15 supp.rect 03/18/21 Unknown Rx Syringe-Needle,Insulin,0.5 ml 1 each MC TID #1 box 03/18/21 Unknown Rx [Insulin Syringe/Needle 0.5 ML] ED Physical Exam - General Limitations: No Limitations General appearance: alert, anxious, in distress - Head Head exam: Present: atraumatic, normocephalic - Eye Eye exam: Present: normal appearance, EOMI. Absent: nystagmus - ENT ENT exam: Present: normal exam, normal orophraynx, mucous membranes dry, normal external ear exam - Neck Neck exam: Present: normal inspection, full ROM. Absent: tenderness, meningismus - Respiratory Respiratory exam: Present: normal lung sounds bilaterally. Absent: respiratory distress, wheezes, rales, rhonchi, stridor, decreased breath sounds - Cardiovascular Cardiovascular Exam: Present: normal rhythm, tachycardia, normal heart sounds. Absent: bradycardia, irregular rhythm, systolic murmur, diastolic murmur, rubs, gallop - GI/Abdominal GI/Abdominal exam: Present: soft, tenderness, other (There is mild diffuse abdominal tenderness, without rebound, guarding or peritoneal signs). Absent: distended, guarding, rebound, rigid, pulsatile mass - Rectal Rectal exam: Present: deferred - Extremities Exam Extremities exam: Present: normal inspection, full ROM, other (2+ pulses noted in the bilateral upper and lower extremities. There is no palpable cord. negative Homans sign. Muscular compartments are soft. The pelvis is stable.). Absent: pedal edema, calf tenderness - Back Exam Back exam: Present: normal inspection, full ROM. Absent: tenderness, CVA tenderness (R), CVA tenderness (L), paraspinal tenderness, vertebral tenderness - Neurological Exam Neurological exam: Present: alert, other (No facial droop. Tongue midline. Extraocular movements intact bilaterally. Facial sensation intact to light touch in V1, V2, V3 distribution bilaterally. 5 and a 5 strength in 4 extremities. Sensation intact to light touch in 4 extremities.) - Psychiatric Psychiatric exam: Present: anxious - Skin Skin exam: Present: warm, dry, intact, normal color. Absent: rash ED Course Vital Signs 05/29/21 05/29/21 05/29/21 07:18 11:04 11:41 Temperature 97.7 F Pulse Rate 120 H 103 H 104 H Respiratory 28 H 16 10 L Rate Blood Pressure 171/107 Blood Pressure 133/76 [Right] O2 Sat by Pulse 99 97 Oximetry 05/29/21 05/29/21 05/29/21 11:46 11:50 11:55 Temperature Pulse Rate 102 H 98 H 123 H Respiratory 21 21 17 Rate Blood Pressure 181/103 171/83 175/137 Blood Pressure [Right] O2 Sat by Pulse Oximetry 05/29/21 05/29/21 05/29/21 12:00 12:06 12:10 Temperature Pulse Rate 117 H 112 H 116 H Respiratory 17 19 22 Rate Blood Pressure 175/137 175/137 175/137 Blood Pressure [Right] O2 Sat by Pulse Oximetry 05/29/21 05/29/21 05/29/21 12:16 12:20 12:25 Temperature Pulse Rate 116 H 112 H 111 H Respiratory 21 20 25 H Rate Blood Pressure 175/137 175/137 169/88 Blood Pressure [Right] O2 Sat by Pulse Oximetry 05/29/21 05/29/21 05/29/21 12:30 12:31 13:00 Temperature Pulse Rate 111 H 109 H 107 H Respiratory 24 22 22 Rate Blood Pressure 169/88 153/85 Blood Pressure 169/88 [Right] O2 Sat by Pulse 95 Oximetry - Reevaluation(s) Reevaluation #1: 05/29/21 10:51 Differential diagnosis, including but not limited to: Cannabinoid hyperemesis syndrome, gastroparesis, diabetic ketoacidosis, obstruction, Jeanna-Rainey tear, pneumonitis, pneumonia, urinary tract infection, dehydration Assessment and plan: 26-year-old gentleman, whom I have evaluated in the past, with a complaint of abdominal cramping, nausea vomiting, and probable superimposed component of Jeanna-Rainey tear. Initial laboratory studies are reviewed and appreciated, and not consistent with acute anemia, or metabolic acidosis, does not require insulin infusion at this time. Tachycardia and hypertension likely secondary to physical distress, likely secondary to a combination of the aforementioned. He did feel somewhat improved after pain medication, nausea medication and haloperidol, on a reassessment, his heart rate is 105 to 110 bpm, and he is playing on his cellular phone. An x-ray of the chest was obtained given complaint of hematemesis, which was negative for acute findings, the patient denied rectal bleeding, and a CT scan of the abdomen pelvis showed no acute surgical pathology. A number of incidental findings were noted. We are awaiting acquisition of repeat vital signs, urinalysis, and EKG. Ideally, would plan to discharge this patient with outpatient primary care and/or GI follow-up once vital signs normalized, and once his laboratory analysis has been completed. 05/29/21 12:40 Patient has had a prolonged stay in the emergency room because he has still been persistently tachycardic, which I suspect is secondary to volume depletion. At the moment, he is sleeping on his side, urinalysis is not consistent with urinary tract infection, heart rate 105 to 110 bpm. Nursing team reports minimal emesis, which is now resolved. Given that patient is sleeping comfortably at this time and that emesis appears to have resolved, it would be reasonable to discharge this patient, assuming normalization of tachycardia. 05/29/21 13:51 Patient is now throwing up again. He continues to have coffee-ground emesis. Heart rate 139 bpm. Additional antiemetics ordered. Contacted gastroenterology on-call, Dr. Wesley Alberto. Have discussed the patient's history, physical, laboratory studies and imaging studies. Protonix twice daily is recommended. Hospital physician, Dr. Alannah Claros to admit Medical decision makin-year-old gentleman with intractable nausea and vomiting, and coffee-ground emesis, without resolution of tachycardia, and persistent nausea/vomiting, inability to tolerate liquid feeds, requires admission for supportive care and urgent GI consultation. 05/29/21 13:53 Urinalysis not consistent with urinary tract infection. ED Medical Decision Making - Lab Data Result diagrams: 05/29/21 08:15 05/29/21 08:15 Vital Signs 05/29/21 07:18 Pulse Rate 120 H Respiratory 28 H Rate Blood Pressure 171/107 O2 Sat by Pulse 99 Oximetry Lab Results 05/29/21 05/29/21 05/29/21 Range/Units 07:15 08:15 08:15 WBC 6.7 (4.5-11.0) K/mm3 RBC 6.07 H (3.65-5.03) M/mm3 Hgb 14.5 (11.8-15.2) gm/dl Hct 44.6 (35.5-45.6) % MCV 74 L (84-94) fl MCH 24 L (28-32) pg MCHC 33 (32-34) % RDW 13.7 (13.2-15.2) % Plt Count 267 (140-440) K/mm3 Lymph % (Auto) 16.0 (13.4-35.0) % [place] % (Auto) 6.9 (0.0-7.3) % Eos % (Auto) 0.1 (0.0-4.3) % Baso % (Auto) 0.8 (0.0-1.8) % Lymph # (Auto) 1.1 L (1.2-5.4) K/mm3 [place] # (Auto) 0.5 (0.0-0.8) K/mm3 Eos # (Auto) 0.0 (0.0-0.4) K/mm3 Baso # (Auto) 0.1 (0.0-0.1) K/mm3 Seg Neutrophils % 76.2 H (40.0-70.0) % Seg Neutrophils # 5.1 (1.8-7.7) K/mm3 VBG pH (7.320-7.420) Sodium 139 (137-145) mmol/L Potassium 4.1 (3.6-5.0) mmol/L Chloride 100.1 (98-107) mmol/L Carbon Dioxide 21 L (22-30) mmol/L Anion Gap 22 mmol/L BUN 17 (9-20) mg/dL Creatinine 0.8 (0.8-1.3) mg/dL Estimated GFR > 60 ml/min BUN/Creatinine Ratio 21 % Glucose 232 H (75-100) mg/dL POC Glucose 208 H (70-105) mg/dL Calcium 10.3 H (8.4-10.2) mg/dL Magnesium (1.7-2.3) mg/dL Total Bilirubin 0.50 (0.1-1.2) mg/dL AST 33 (5-40) units/L ALT 30 (7-56) units/L Alkaline Phosphatase 101 (35-129) units/L Total Protein 8.4 H (6.3-8.2) g/dL Albumin 4.3 (3.9-5) g/dL Albumin/Globulin Ratio 1.0 % 05/29/21 05/29/21 Range/Units 08:15 08:15 WBC (4.5-11.0) K/mm3 RBC (3.65-5.03) M/mm3 Hgb (11.8-15.2) gm/dl Hct (35.5-45.6) % MCV (84-94) fl MCH (28-32) pg MCHC (32-34) % RDW (13.2-15.2) % Plt Count (140-440) K/mm3 Lymph % (Auto) (13.4-35.0) % [place] % (Auto) (0.0-7.3) % Eos % (Auto) (0.0-4.3) % Baso % (Auto) (0.0-1.8) % Lymph # (Auto) (1.2-5.4) K/mm3 [place] # (Auto) (0.0-0.8) K/mm3 Eos # (Auto) (0.0-0.4) K/mm3 Baso # (Auto) (0.0-0.1) K/mm3 Seg Neutrophils % (40.0-70.0) % Seg Neutrophils # (1.8-7.7) K/mm3 VBG pH 7.422 H (7.320-7.420) Sodium (137-145) mmol/L Potassium (3.6-5.0) mmol/L Chloride (98-107) mmol/L Carbon Dioxide (22-30) mmol/L Anion Gap mmol/L BUN (9-20) mg/dL Creatinine (0.8-1.3) mg/dL Estimated GFR ml/min BUN/Creatinine Ratio % Glucose (75-100) mg/dL POC Glucose (70-105) mg/dL Calcium (8.4-10.2) mg/dL Magnesium 2.00 (1.7-2.3) mg/dL Total Bilirubin (0.1-1.2) mg/dL AST (5-40) units/L ALT (7-56) units/L Alkaline Phosphatase (35-129) units/L Total Protein (6.3-8.2) g/dL Albumin (3.9-5) g/dL Albumin/Globulin Ratio % - EKG Data -: EKG Interpreted by Mi EKG shows normal: sinus rhythm - EKG Data Interpretation: unchanged when compared t (March 2021) 05/29/21 11:00 EKG interpreted at 10: 53 Sinus rhythm, 98 bpm. Normal axis, QTC prolonged, left ventricular hypertrophy/high left ventricular voltage. Abnormal EKG, not a STEMI, QTC is prolonged. - Radiology Data Radiology results: report reviewed, image reviewed CT ABDOMEN AND PELVIS WITH CONTRAST INDICATION / CLINICAL INFORMATION: abd pain n/v hematemesis omni 300 100 ml. TECHNIQUE: Axial CT images were obtained through the abdomen and pelvis after 100 mL Omnipaque [address] scans at this location are performed using CT dose reduction for ALARA by means of automated exposure control. COMPARISON: None available. FINDINGS: LOWER CHEST: No significant abnormality. AORTA / ARTERIES: No significant abnormality. IVC / VEINS: No significant abnormality. LYMPH NODES: No significant adenopathy. COLON: No significant abnormality. APPENDIX: No significant abnormality. STOMACH / SMALL BOWEL: Several loops of fluid-filled bowel. No small bowel distention. PERITONEUM: No free fluid. No free air. No fluid collection. LIVER: No significant abnormality. GALLBLADDER: No significant abnormality. BILE DUCTS: No significant abnormality. PANCREAS: The pancreas is atrophic. SPLEEN: No significant abnormality. ADRENALS: No significant abnormality. RIGHT KIDNEY / URETER: No significant abnormality. LEFT KIDNEY / URETER: No significant abnormality. URINARY BLADDER: There is mild thickening of the urinary bladder wall. REPRODUCTIVE ORGANS: No significant abnormality. SKELETAL SYSTEM: There is post right change to the left inferior pubic ramus, possibly from prior fracture versus stress fracture versus avulsion injury. ADDITIONAL FINDINGS: None. IMPRESSION: 1. Several fluid-filled loops of small bowel throughout the abdomen which can be seen with infectious versus inflammatory enteritis. 2. Atrophy of the pancreas which can be seen with diabetes versus cystic fibrosis versus chronic steroid usage. Correlate clinically. 3. Mild urinary bladder wall thickening which may be seen with cystitis, correlate clinically. 4. Other incidental findings as above Signer Name: Bethel Alexa Peter DO Signed: 05/29/2021 9:23 AM CHEST 1 VIEW INDICATION: n/v, hematemesis. COMPARISON: 05/17/2016 FINDINGS: Support devices: None. Heart: Normal. Lungs/Pleura: No acute pulmonary or pleu ral findings. IMPRESSION: 1. No acute findings. Signer Name: Blade Choi MD Signed: 05/29/2021 8:26 AM Workstation Name: [id number] Critical care attestation.: If time is entered above; I have spent that time in minutes in the direct care of this critically ill patient, excluding procedure time. ED Disposition Clinical Impression: Dehydration, Acute abdominal pain, History of marijuana use, Elevated blood pressure reading, Intractable nausea and vomiting, Coffee ground emesis Disposition: OP ADMIT IP TO THIS HOSP Is pt being admited?: Yes Does the pt Need Aspirin: No Condition: Fair Referrals: PRIMARY CARE, [Primary Care Provider] - 3-5 Days
[2021-05-29 08:24] LABS: Basophils # (Auto) 0.1 K/mm3 (0.0-0.1); Basophils % (Auto) 0.8 % (0.0-1.8); Eosinophils % (Auto) 0.1 % (0.0-4.3); Hematocrit 44.6 % (35.5-45.6); Hemoglobin 14.5 gm/dl (11.8-15.2); Lymphocytes # (Auto) 1.1 K/mm3 (1.2-5.4); Mean Corpuscular HGB Conc 33 % (32-34); Mean Corpuscular Volume 74 fl (84-94); Monocytes # (Auto) 0.5 K/mm3 (0.0-0.8); Monocytes % (Auto) 6.9 % (0.0-7.3); Platelet Count 267 K/mm3 (140-440); Red Blood Count 6.07 M/mm3 (3.65-5.03); Red Cell Distribution Width 13.7 % (13.2-15.2)
[2021-05-29] MEDS ORDERED: PANTOPRAZOLE 40 MG INJ IV ONE (09:03)
[2021-05-29] MEDS ORDERED: HALOPERIDOL LACTATE 5 MG/1 ML INJ IM STA (09:03)
[2021-05-29 09:07] LABS: Alanine Aminotransferase 30 units/L (7-56); Albumin 4.3 g/dL (3.9-5); BUN/Creatinine Ratio 21; Blood Urea Nitrogen 17 mg/dL (9-20); Calcium 10.3 mg/dL (8.4-10.2); Hemolysis Index 11
--- NOTE | 2021-05-29 09:31 | XRay Report ---
CHEST 1 VIEW INDICATION: n/v, hematemesis. COMPARISON: 05/17/2016 FINDINGS: Support devices: None. Heart: Normal. Lungs/Pleura: No acute pulmonary or pleural findings. IMPRESSION: 1. No acute findings. Signer Name: Blade Choi MD Signed: 05/29/2021 9:26 AM Workstation Name: [id number]
--- NOTE | 2021-05-29 10:28 | Cat Scan Report ---
CT ABDOMEN AND PELVIS WITH CONTRAST INDICATION / CLINICAL INFORMATION: abd pain n/v hematemesis omni 300 100 ml. TECHNIQUE: Axial CT images were obtained through the abdomen and pelvis after 100 mL Omnipaque [address] scans at this location are performed using CT dose reduction for ALARA by means of automated exposure control. COMPARISON: None available. FINDINGS: LOWER CHEST: No significant abnormality. AORTA / ARTERIES: No significant abnormality. IVC / VEINS: No significant abnormality. LYMPH NODES: No significant adenopathy. COLON: No significant abnormality. APPENDIX: No significant abnormality. STOMACH / SMALL BOWEL: Several loops of fluid-filled bowel. No small bowel distention. PERITONEUM: No free fluid. No free air. No fluid collection. LIVER: No significant abnormality. GALLBLADDER: No significant abnormality. BILE DUCTS: No significant abnormality. PANCREAS: The pancreas is atrophic. SPLEEN: No significant abnormality. ADRENALS: No significant abnormality. RIGHT KIDNEY / URETER: No significant abnormality. LEFT KIDNEY / URETER: No significant abnormality. URINARY BLADDER: There is mild thickening of the urinary bladder wall. REPRODUCTIVE ORGANS: No significant abnormality. SKELETAL SYSTEM: There is post right change to the left inferior pubic ramus, possibly from prior fra cture versus stress fracture versus avulsion injury. ADDITIONAL FINDINGS: None. IMPRESSION: 1. Several fluid-filled loops of small bowel throughout the abdomen which can be seen with infectious versus inflammatory enteritis. 2. Atrophy of the pancreas which can be seen with diabetes versus cystic fibrosis versus chronic ster oid usage. Correlate clinically. 3. Mild urinary bladder wall thickening which may be seen with cystitis, correlate clinically. 4. Other incidental findings as above Signer Name: Bethel Peter DO Signed: 05/29/2021 10:23 AM Workstation Name: [id number]
[2021-05-29] MEDS ORDERED: LORazepam 2 MG/ML VIAL IV ONE (10:45)
[2021-05-29] MEDS ORDERED: diphenhydrAMINE 50 MG/ML VIAL IV ONE (10:45)
[2021-05-29 11:54] LABS: Bilirubin,Urine NEG (Negative); Blood,Urine SM (Negative); Color,Urine Yellow (Yellow); Mucus,Urine FEW /HPF; Urobilinogen,Urine < 2.0 mg/dL (<2.0)
[2021-05-29 12:04] LABS: Protein,Urine >500 mg/dL (Negative)
[2021-05-29] MEDS ORDERED: SODIUM CHLORIDE 0.9% 1000 ML 2,000 ML IV ONE (12:22)
[2021-05-29 12:58] LABS: Amphetamine Screen,Urine Negative; Benzodiazepines Screen,Urine Negative; Cocaine Screen,Urine Negative; Methadone Screen,Urine Negative; Opiate Screen,Urine Negative
[2021-05-29 13:42] LABS: Cannabinoid Screen,Urine PRESUMPTIVE POSITIVE
[2021-05-29] MEDS ORDERED: METOCLOPRAMIDE 10 MG/2 ML INJ IV ONE (13:47)
[2021-05-29] MEDS ORDERED: METOCLOPRAMIDE 10 MG TAB PO PRN (22:18)
[2021-05-29] MEDS ORDERED: ACETAMINOPHEN 500 MG TAB PO PRN (22:18)
[2021-05-29] MEDS ORDERED: ACETAMINOPHEN 325 MG TAB PO PRN (22:23)
[2021-05-29] MEDS ORDERED: HYDROmorphone 1 MG/1 ML INJ IV PRN (22:36)
--- NOTE | 2021-05-29 22:41 | History and Physical Report ---
History of Present Illness Date of examination: 05/29/21 Date of admission: 05/29/21 13:52 Chief complaint: Persistent nausea and vomiting History of present illness: 26-year-old with history of type 1 diabetes comes in for persistent nausea vomiting. Also cramping. Patient says that he has been taking insulin regularly. Patient also admits to marijuana use. Vomiting about 4-6 times in the last few hours. No diarrhea. Abdominal cramping present. No exacerbating or relieving factors. Pain is about 6 on a scale of 1-10. No shortness of breath. - Past Medical History Hx Hypertension: Yes Hx Diabetes: Yes (Type 1) - Surgical History -No - Social History Smoking Status: Never Smoker Substance Use Type: Alcohol - Medications Home Medications: Home Medications Medication Instructions Recorded Confirmed Last Taken Type Insulin Aspart (Nf) [Novolog] 0 unit SQ AC 05/17/16 05/17/16 Unknown History Insulin Aspart Prot/Aspart(Nf) 18 units SQ QPM 05/17/16 05/17/16 05/15/16 History [NovoLOG Mix 70/30 VIAL] Insulin Aspart Prot/Aspart(Nf) 30 units SQ QAM 05/17/16 05/17/16 05/16/16 History [NovoLOG Mix 70/30 VIAL] Insulin NPH/Regular [NovoLIN 70/30] 18 unit SUB-Q QHS #30 units 05/19/16 Unknown Rx Insulin NPH/Regular [NovoLIN 70/30] 30 unit SUB-Q QAM #30 units 05/19/16 Unknown Rx Acetaminophen [Non-Aspirin Extra 500 mg PO Q6HR PRN #30 tablet 03/18/21 Unknown Rx Strength] Danita Root [Danita] 250 mg PO QID PRN #30 capsule 03/18/21 Unknown Rx Insulin NPH/Regular [NovoLIN 70/30] 10 unit SUB-Q TIDAC #1 vial 03/18/21 Unknown Rx Metoclopramide [Reglan] 10 mg PO QID PRN #30 tablet 03/18/21 Unknown Rx Promethazine [Phenergan SUPPOS] 50 mg RI Q6H PRN #15 supp.rect 03/18/21 Unknown Rx Syringe-Needle,Insulin,0.5 ml 1 each MC TID #1 box 03/18/21 Unknown Rx [Insulin Syringe/Needle 0.5 ML] Review of Systems ROS: Stated complaint: NAUSEA AND VOMITING Other details as noted in HPI Constitutional: malaise, weakness, other (Denies loss of taste and smell). denies: fever Eyes: denies: eye discharge ENT: denies: epistaxis Respiratory: denies: cough Cardiovascular: denies: chest pain Gastrointestinal: abdominal pain, nausea, vomiting, hematemesis. denies: melena, hematochezia Genitourinary: denies: dysuria, testicular pain Neurological: weakness Psychiatric: anxiety Hematological/Lymphatic: denies: easy bleeding Medications and Allergies Allergies Allergy/AdvReac Type Severity Reaction Status Date / Time shellfish derived Allergy Swelling Verified 05/29/21 07:08 Home Medications Medication Instructions Recorded Confirmed Last Taken Type Insulin Aspart (Nf) [Novolog] 0 unit SQ AC 05/17/16 05/17/16 Unknown History Insulin Aspart Prot/Aspart(Nf) 18 units SQ QPM 05/17/16 05/17/16 05/15/16 His tory [NovoLOG Mix 70/30 VIAL] Insulin Aspart Prot/Aspart(Nf) 30 units SQ QAM 05/17/16 05/17/16 05/16/16 History [NovoLOG Mix 70/30 VIAL] Insulin NPH/Regular [NovoLIN 70/30] 18 unit SUB-Q QHS #30 units 05/19/16 Unknown Rx Insulin NPH/Regular [NovoLIN 70/30] 30 unit SUB-Q QAM #30 units 05/19/16 Unknown Rx Acetaminophen [Non-Aspirin Extra 500 mg PO Q6HR PRN #30 tablet 03/18/21 Unknown Rx Strength] Danita Root [Danita] 250 mg PO QID PRN #30 capsule 03/18/21 Unknown Rx Insulin NPH/Regular [NovoLIN 70/30] 10 unit SUB-Q TIDAC #1 vial 03/18/21 Unknown Rx Metoclopramide [Reglan] 10 mg PO QID PRN #30 tablet 03/18/21 Unknown Rx Promethazine [Phenergan SUPPOS] 50 mg RI Q6H PRN #15 supp.rect 03/18/21 Unknown Rx Syringe-Needle,Insulin,0.5 ml 1 each MC TID #1 box 03/18/21 Unknown Rx [Insulin Syringe/Needle 0.5 ML] Exam - Constitutional Vitals: Temp Pulse Resp BP Pulse Ox 97.7 F 110 H 15 158/91 79 L 05/29/21 11:04 05/29/21 20:21 05/29/21 20:00 05/29/21 21:01 05/29/21 21:01 General appearance: Present: no acute distress, well-nourished - EENT Eyes: Present: PERRL ENT: hearing intact, clear oral mucosa - Neck Neck: Present: supple, normal ROM - Respiratory Respiratory effort: normal Respiratory: bilateral: CTA - Cardiovascular Heart rate: 78 Rhythm: regular Heart Sounds: Present: S1 & S2. Absent: rub, click - Extremities Extremities: pulses symmetrical, No edema Peripheral Pulses: within normal limits - Abdominal General gastrointestinal: Present: soft, non-tender, non-distended, normal bowel sounds Localized gastrointestinal: tender: diffuse Male genitourinary: Present: normal - Rectal Rectal Exam: deferred - Integumentary Integumentary: Present: clear, warm, dry - Musculoskeletal Musculoskeletal: gait normal, strength equal bilaterally - Psychiatric Psychiatric: appropriate mood/affect, intact judgment & insight - Neurologic Neurologic: CNII-XII intact, moves all extremities - Allied Health Allied health notes reviewed: nursing, case management Results - Labs CBC & Chem 7: 05/29/21 08:15 05/29/21 08:15 Labs: Laboratory Last Values WBC 6.7 K/mm3 (4.5-11.0) 05/29/21 08:15 RBC 6.07 M/mm3 (3.65-5.03) H 05/29/21 08:15 Hgb 14.5 gm/dl (11.8-15.2) 05/29/21 08:15 Hct 44.6 % (35.5-45.6) 05/29/21 08:15 MCV 74 fl (84-94) L 05/29/21 08:15 MCH 24 pg (28-32) L 05/29/21 08:15 MCHC 33 % (32-34) 05/29/21 08:15 RDW 13.7 % (13.2-15.2) 05/29/21 08:15 Plt Count 267 K/mm3 (140-440) 05/29/21 08:15 Lymph % (Auto) 16.0 % (13.4-35.0) 05/29/21 08:15 [place] % (Auto) 6.9 % (0.0-7.3) 05/29/21 08:15 Eos % (Auto) 0.1 % (0.0-4.3) 05/29/21 08:15 Baso % (Auto) 0.8 % (0.0-1.8) 05/29/21 08:15 Lymph # (Auto) 1.1 K/mm3 (1.2-5.4) L 05/29/21 08:15 [place] # (Auto) 0.5 K/mm3 (0.0-0.8) 05/29/21 08:15 Eos # (Auto) 0.0 K/mm3 (0.0-0.4) 05/29/21 08:15 Baso # (Auto) 0.1 K/mm3 (0.0-0.1) 05/29/21 08:15 Seg Neutrophils % 76.2 % (40.0-70.0) H 05/29/21 08:15 Seg Neutrophils # 5.1 K/mm3 (1.8-7.7) 05/29/21 08:15 VBG pH 7.422 (7.320-7.420) H 05/29/21 08:15 Sodium 139 mmol/L (137-145) 05/29/21 08:15 Potassium 4.1 mmol/L (3.6-5.0) 05/29/21 08:15 Chloride 100.1 mmol/L (98-107) 05/29/21 08:15 Carbon Dioxide 21 mmol/L (22-30) L 05/29/21 08:15 Anion Gap 22 mmol/L 05/29/21 08:15 BUN 17 mg/dL (9-20) 05/29/21 08:15 Creatinine 0.8 mg/dL (0.8-1.3) 05/29/21 08:15 Estimated GFR > 60 ml/min 05/29/21 08:15 BUN/Creatinine Ratio 21 % 05/29/21 08:15 Glucose 232 mg/dL (75-100) H 05/29/21 08:15 POC Glucose 208 mg/dL (70-105) H 05/29/21 07:15 Calcium 10.3 mg/dL (8.4-10.2) H 05/29/21 08:15 Magnesium 2.00 mg/dL (1.7-2.3) 05/29/21 08:15 Total Bilirubin 0.50 mg/dL (0.1-1.2) 05/29/21 08:15 AST 33 units/L (5-40) 05/29/21 08:15 ALT 30 units/L (7-56) 05/29/21 08:15 Alkaline Phosphatase 101 units/L (35-129) 05/29/21 08:15 Total Protein 8.4 g/dL (6.3-8.2) H 05/29/21 08:15 Albumin 4.3 g/dL (3.9-5) 05/29/21 08:15 Albumin/Globulin Ratio 1.0 % 05/29/21 08:15 Urine Color Yellow (Yellow) 05/29/21 Unknown Urine Turbidity Clear (Clear) 05/29/21 Unknown Urine pH 8.0 (5.0-7.0) H 05/29/21 Unknown Ur Specific [place] 1.054 (1.003-1.030) H 05/29/21 Unknown Urine Protein >500 mg/dL (Negative) 05/29/21 Unknown Urine Glucose (UA) >=500 mg/dL (Negative) 05/29/21 Unknown Urine Ketones 80 mg/dL (Negative) 05/29/21 Unknown Urine Blood Sm (Negative) 05/29/21 Unknown Urine Nitrite Neg (Negative) 05/29/21 Unknown Urine Bilirubin Neg (Negative) 05/29/21 Unknown Urine Urobilinogen < 2.0 mg/dL (<2.0) 05/29/21 Unknown Ur Leukocyte Esterase Neg (Negative) 05/29/21 Unknown Urine WBC (Auto) 1.0 /HPF (0.0-6.0) 05/29/21 Unknown Urine RBC (Auto) 9.0 /HPF (0.0-6.0) 05/29/21 Unknown U Epithel Cells (Auto) < 1.0 /HPF (0-13.0) 05/29/21 Unknown Urine Mucus Few /HPF 05/29/21 Unknown Urine Opiates Screen Negative 05/29/21 Unknown Urine Methadone Screen Negative 05/29/21 Unknown Ur Barbiturates Screen Negative 05/29/21 Unknown Ur Phencyclidine Scrn Negative 05/29/21 Unknown Ur Amphetamines Screen Negative 05/29/21 Unknown U Benzodiazepines Scrn Negative 05/29/21 Unknown Urine Cocaine Screen Negative 05/29/21 Unknown U Marijuana (THC) Screen Presumptive positive 05/29/21 Unknown Drugs of Abuse Note Disclamer 05/29/21 Unknown Short CBC 05/29/21 Range/Units 08:15 WBC 6.7 (4.5-11.0) K/mm3 Hgb 14.5 (11.8-15.2) gm/dl Hct 44.6 (35.5-45.6) % Plt Count 267 (140-440) K/mm3 BMP 05/29/21 08:15 Sodium 139 Potassium 4.1 Chloride 100.1 Carbon Dioxide 21 L BUN 17 Creatinine 0.8 Glucose 232 H Calcium 10.3 H Liver Function 05/29/21 Range/Units 08:15 Total Bilirubin 0.50 (0.1-1.2) mg/dL AST 33 (5-40) units/L ALT 30 (7-56) units/L Alkaline Phosphatase 101 (35-129) units/L Albumin 4.3 (3.9-5) g/dL Urine 05/29/21 Range/Units Unknown Urine Color Yellow (Yellow) Urine pH 8.0 H (5.0-7.0) Ur Specific [place] 1.054 H (1.003-1.030) Urine Protein >500 (Negative) mg/dL Urine Glucose (UA) >=500 (Negative) mg/dL - Imaging and Cardiology Imaging and Cardiology: Abdominal CAT scan Several fluid-filled loops of small bowel throughout the abdomen which can be seen with infectious versus inflammatory enteritis Atrophy of the pancreas which can be seen with diabetes versus cystic fibrosis versus chronic steroid usage Mild urinary bladder wall thickening which may be seen with cystitis correlate clinically. Chest x-ray No acute findings Assessment and Plan Advance Directives: Yes (Full code) VTE prophylaxis?: Chemical Plan of care discussed with patient/family: Yes - Patient Problems (1) Acute gastroenteritis Current Visit: Yes Status: Acute Plan to address problem: Patient initiated on IV fluids IV Reglan and IV Zofran. Possible gastroparesis. Nuclear scan for gastric emptying if necessary Abdominal CAT scan consistent with enteritis Clear liquids for now (2) Uncontrolled diabetes mellitus Current Visit: Yes Status: Acute Qualifiers: Diabetes mellitus type: type 1 Plan to address problem: Frequent Accu-Cheks and high-dose sliding scale coverage for now No DKA (3) Coffee ground emesis Current Visit: Yes Status: Acute Plan to address problem: 1 episode Possible Jeanna-Rainey tear IV Protonix initiated GI consult requested No further upper GI bleed (4) DVT prophylaxis Current Visit: Yes Status: Acute Plan to address problem: SCDs and GI prophylaxis
[2021-05-30] MEDS: PANTOPRAZOLE 40 MG INJ IV SCH ×3 (01:10→09:46)
[2021-05-30] MEDS: SODIUM CHLORIDE 0.9% 1000 ML 1,000 ML IV SCH (01:13)
[2021-05-30] MEDS: INSULIN LISPRO 100 UNIT/ML SUB-Q SCH ×4 (01:13→17:45)
[2021-05-30] MEDS: oxyCODONE /ACETAMINOPHEN 5-325MG TAB PO PRN ×2 (03:37→15:44)
[2021-05-30] MEDS: ONDANSETRON 4 MG/2 ML INJ IV PRN (04:01)
[2021-05-30 08:58] LABS: Basophils # (Auto) 0.1 K/mm3 (0.0-0.1); Basophils % (Auto) 0.5 % (0.0-1.8); Hematocrit 41.2 % (35.5-45.6); Hemoglobin 13.5 gm/dl (11.8-15.2); Lymphocytes # (Auto) 1.9 K/mm3 (1.2-5.4); Lymphocytes % (Auto) 16.5 % (13.4-35.0); Mean Corpuscular HGB Conc 33 % (32-34); Mean Corpuscular Volume 74 fl (84-94); Monocytes # (Auto) 0.9 K/mm3 (0.0-0.8); Monocytes % (Auto) 8.1 % (0.0-7.3); Platelet Count 229 K/mm3 (140-440); Red Blood Count 5.56 M/mm3 (3.65-5.03); Red Cell Distribution Width 13.4 % (13.2-15.2)
[2021-05-30 09:18] LABS: Alanine Aminotransferase 27 units/L (7-56); Albumin 3.8 g/dL (3.9-5); BUN/Creatinine Ratio 23; Blood Urea Nitrogen 18 mg/dL (9-20); Calcium 8.6 mg/dL (8.4-10.2); Hemolysis Index 49
--- NOTE | 2021-05-30 09:30 | Gastroenterology Consultation ---
History of Present Illness - Reason for Consult Consult date: 05/30/21 N/V Requesting physician: PETE MOLINA - History of Present Illness The patient is a 26 yo male T I DM, with medication noncompliance (has nearly run out of meds, and was rationing, and has had admits in the past for lack of insulin). He came to the ER for intractable N/V with epigastric pain similar to prior attacks of DKA. Of note, he was smoking large amounts of MJ to treat the pain and N. He has no blood in the emesis, and no blood in the stools. He denies other drugs or severe EtOH abuse. He has no CP or SOB. Since admit last night, on reglan/haldol/zofran, his N/V has resolved and he is now able to tolerate liquids. Past History Past Medical History: diabetes Past Surgical History: No surgical history Social history: other (MJ) Family history: no significant family history Medications and Allergies Allergies Allergy/AdvReac Type Severity Reaction Status Date / Time shellfish derived Allergy Swelling Verified 05/29/21 07:08 Home Medications Medication Instructions Recorded Confirmed Last Taken Type Insulin Aspart (Nf) [Novolog] 0 unit SQ AC 05/17/16 05/17/16 Unknown History Insulin Aspart Prot/Aspart(Nf) 18 units SQ QPM 05/17/16 05/17/16 05/15/16 History [NovoLOG Mix 70/30 VIAL] Insulin Aspart Prot/Aspart(Nf) 30 units SQ QAM 05/17/16 05/17/16 05/16/16 His tory [NovoLOG Mix 70/30 VIAL] Insulin NPH/Regular [NovoLIN 70/30] 18 unit SUB-Q QHS #30 units 05/19/16 Unknown Rx Insulin NPH/Regular [NovoLIN 70/30] 30 unit SUB-Q QAM #30 units 05/19/16 U nknown Rx Acetaminophen [Non-Aspirin Extra 500 mg PO Q6HR PRN #30 tablet 03/18/21 Unknown Rx Strength] Danita Root [Danita] 250 mg PO QID PRN #30 capsule 03/18/21 Unknown Rx Insulin NPH/Regular [NovoLIN 70/30] 10 unit SUB-Q TIDAC #1 vial 03/18/21 Unknown Rx Metoclopramide [Reglan] 10 mg PO QID PRN #30 tablet 03/18/21 Unknown Rx Promethazine [Phenergan SUPPOS] 50 mg [place] Q6H PRN #15 supp.rect 03/18/21 Unknown Rx Syringe-Needle,Insulin,0.5 ml 1 each MC TID #1 box 03/18/21 Unknown Rx [Insulin Syringe/Needle 0.5 ML] Active Meds: Active Medications Acetaminophen (Acetaminophen 325 Mg Tab) 650 mg PO Q4H PRN PRN Reason: Pain MILD(1-3)/Fever >100.5/MARTIN Hydromorphone HCl (Hydromorphone 1 Mg/1 Ml Inj) 0.5 mg IV Q3H PRN PRN Reason: Pain , Severe (7-10) Sodium Chloride (Nacl 0.9% 1000 Ml) 1,000 mls @ 100 mls/hr IV DIRECT MAURY Last Admin: 05/30/21 01:13 Dose: 100 mls/hr Documented by: Insulin Human Lispro (Insulin Lispro 100 Unit/Ml) 0 unit SUB-Q Q6HR [facility]; Protocol Last Admin: 05/30/21 06:34 Dose: 3 unit Documented by: Metoclopramide HCl (Metoclopramide 10 Mg Tab) 10 mg PO QID PRN PRN Reason: Nausea Metoclopramide HCl (Metoclopramide 10 Mg/2 Ml Inj) 10 mg IV Q6H PRN PRN Reason: Nausea And Vomiting Ondansetron HCl (Ondansetron 4 Mg/2 Ml Inj) 4 mg IV Q8H PRN PRN Reason: Nausea And Vomiting Last Admin: 05/30/21 04:01 Dose: 4 mg Documented by: Oxycodone/Acetaminophen (Oxycodone /Acetaminophen 5-325mg Tab) 1 tab PO Q6H PRN PRN Reason: Pain, Moderate (4-6) Last Admin: 05/30/21 03:37 Dose: 1 tab Documented by: Pantoprazole Sodium (Pantoprazole 40 Mg Inj) 40 mg IV BID [facility] Last Admin: 05/30/21 01:10 Dose: 40 mg Documented by: Sodium Chloride (Sodium Chloride 0.9% 10 Ml Flush Syringe) 10 ml IV BID MAURY Sodium Chloride (Sodium Chloride 0.9% 10 Ml Flush Syringe) 10 ml IV PRN PRN PRN Reason: LINE FLUSH I HAVE REVIEWED/RECONCILED MEDICATIONS Review of Systems - Review of Systems All systems: negative (as noted in the HPI.) Exam - Constitutional Vital Signs: Temp Pulse Resp BP Pulse Ox 97.6 F 103 H 16 107/60 100 05/30/21 03:11 05/30/21 06:00 05/30/21 06:00 05/30/21 06:00 05/30/21 03:06 General appearance: no acute distress - EENT Eyes: PERRL, EOM intact ENT: hearing intact, clear oral mucosa, dentition normal - Neck Neck: supple, normal ROM - Respiratory Respiratory effort: normal Respiratory: bilateral: CTA - Cardiovascular Rhythm: regular Heart Sounds: Present: S1 & S2 Extremities: no ischemia, No edema - Gastrointestinal General gastrointestinal: Present: soft, non-tender, non-distended - Integumentary Integumentary: Present: clear, warm, dry - Neurologic Neurological: alert and oriented x3 - Labs CBC & Chem 7: 05/30/21 08:21 05/30/21 08:21 Lab Results: Laboratory Results - last 24 hr 05/29/21 05/29/21 05/30/21 Unknown Unknown 00:24 WBC RBC Hgb Hct MCV MCH MCHC RDW Plt Count Lymph % (Auto) [place] % (Auto) Eos % (Auto) Baso % (Auto) Lymph # (Auto) [place] # (Auto) Eos # (Auto) Baso # (Auto) Seg Neutrophils % Seg Neutrophils # Sodium Potassium Chloride Carbon Dioxide Anion Gap BUN Creatinine Estimated GFR BUN/Creatinine Ratio Glucose POC Glucose 358 H Calcium Total Bilirubin AST ALT Alkaline Phosphatase Total Protein Albumin Albumin/Globulin Ratio Urine Color Yellow Urine Turbidity Clear Urine pH 8.0 H Ur Specific [place] 1.054 H Urine Protein >500 Urine Glucose (UA) >=500 Urine Ketones 80 Urine Blood Sm Urine Nitrite Neg Urine Bilirubin Neg Urine Urobilinogen < 2.0 Ur Leukocyte Esterase Neg Urine WBC (Auto) 1.0 Urine RBC (Auto) 9.0 U Epithel Cells (Auto) < 1.0 Urine Mucus Few Urine Opiates Screen Negative Urine Methadone Screen Negative Ur Barbiturates Screen Negative Ur Phencyclidine Scrn Negative Ur Amphetamines Screen Negative U Benzodiazepines Scrn Negative Urine Cocaine Screen Negative U Marijuana (THC) Screen Presumptive positive Drugs of Abuse Note Disclamer 05/30/21 05/30/21 05/30/21 05:56 07:22 08:21 WBC 11.2 H RBC 5.56 H Hgb 13.5 Hct 41.2 MCV 74 L MCH 24 L MCHC 33 RDW 13.4 Plt Count 229 Lymph % (Auto) 16.5 [place] % (Auto) 8.1 H Eos % (Auto) 0.0 Baso % (Auto) 0.5 Lymph # (Auto) 1.9 [place] # (Auto) 0.9 H Eos # (Auto) 0.0 Baso # (Auto) 0.1 Seg Neutrophils % 74.9 H Seg Neutrophils # 8.4 H Sodium Potassium Chloride Carbon Dioxide Anion Gap BUN Creatinine Estimated GFR BUN/Creatinine Ratio Glucose POC Glucose 185 H 226 H Calcium Total Bilirubin AST ALT Alkaline Phosphatase Total Protein Albumin Albumin/Globulin Ratio Urine Color Urine Turbidity Urine pH Ur Specific [place] Urine Protein Urine Glucose (UA) Urine Ketones Urine Blood Urine Nitrite Urine Bilirubin Urine Urobilinogen Ur Leukocyte Esterase Urine WBC (Auto) Urine RBC (Auto) U Epithel Cells (Auto) Urine Mucus Urine Opiates Screen Urine Methadone Screen Ur Barbiturates Screen Ur Phencyclidine Scrn Ur Amphetamines Screen U Benzodiazepines Scrn Urine Cocaine Screen U Marijuana (THC) Screen Drugs of Abuse Note 05/30/21 08:21 WBC RBC Hgb Hct MCV MCH MCHC RDW Plt Count Lymph % (Auto) [place] % (Auto) Eos % (Auto) Baso % (Auto) Lymph # (Auto) [place] # (Auto) Eos # (Auto) Baso # (Auto) Seg Neutrophils % Seg Neutrophils # Sodium 135 L Potassium 4.1 Chloride 98.0 Carbon Dioxide 22 Anion Gap 19 BUN 18 Creatinine 0.8 Estimated GFR > 60 BUN/Creatinine Ratio 23 Glucose 187 H POC Glucose Calcium 8.6 D Total Bilirubin 0.40 AST 30 ALT 27 Alkaline Phosphatase 95 Total Protein 7.3 Albumin 3.8 L Albumin/Globulin Ratio 1.1 Urine Color Urine Turbidity Urine pH Ur Specific [place] Urine Protein Urine Glucose (UA) Urine Ketones Urine Blood Urine Nitrite Urine Bilirubin Urine Urobilinogen Ur Leukocyte Esterase Urine WBC (Auto) Urine RBC (Auto) U Epithel Cells (Auto) Urine Mucus Urine Opiates Screen Urine Methadone Screen Ur Barbiturates Screen Ur Phencyclidine Scrn Ur Amphetamines Screen U Benzodiazepines Scrn Urine Cocaine Screen U Marijuana (THC) Screen Drugs of Abuse Note Assessment and Plan - Patient Problems (1) Intractable nausea and vomiting Current Visit: Yes Status: Acute Plan to address problem: - Unclear if due to DKA causing transient gastroparesis, or Cannabis Hyperem esis. - Appears to be resolving, so will advance to regular diet. - Cautioned to avoid MJ in the future, and be compliant with meds. - Continue protonix while here, but no melena to suggest active ulcer; would not Rx on discharge. - MVI therapy. - Will sign off; please call if needed.
--- NOTE | 2021-05-30 09:43 | Electrocardiograph Report ---
[facility] Test Date: 2021-05-29 Test Time: 10:53:19 Pat Name: LAURA RODRIGUEZ Department: Room: A380 Gender: M Chairman And Chief Executive Officer: RICHARD : 1995 Requested By: JESUS MANUEL MCKEON Order Number: [id number] Reading MD: Liang Francis Measurements Intervals Sanders Rate: 98 P: -15 ME: 124 QRS: 82 QRSD: 89 T: -84 QT: 355 QTc: 455 Interpretive Statements Sinus rhythm Abnormal T, consider ischemia, diffuse leads Compared to ECG 03/17/2021 22:00:41 No significant change noted. T-wave abnormality still present Electronically Signed On 05-30-2021 9:42:45 EDT by Liang Francis
[2021-05-30] MEDS: MULTIVITAMINS ,THERAPEUTIC TAB PO SCH (12:21)
[2021-05-30] MEDS: METOCLOPRAMIDE 10 MG/2 ML INJ IV PRN ×2 (13:24→17:45)
--- NOTE | 2021-05-30 22:02 | Progress Note ---
Assessment and Plan - Patient Problems (1) Acute gastroenteritis Current Visit: Yes Status: Acute Plan to address problem: Patient initiated on IV fluids IV Reglan and IV Zofran. Possible gastroparesis. Nuclear scan for gastric emptying if necessary Abdominal CAT scan consistent with enteritis Clear liquids for now (2) Uncontrolled diabetes mellitus Current Visit: Yes Status: Acute Qualifiers: Diabetes mellitus type: type 1 Plan to address problem: Frequent Accu-Cheks and high-dose sliding scale coverage for now No DKA (3) Coffee ground emesis Current Visit: Yes Status: Acute Plan to address problem: No further hematemesis GI consult appreciated IV Protonix for now IV fluids for now (4) DVT prophylaxis Current Visit: Yes Status: Acute Plan to address problem: SCDs and GI prophylaxis Subjective Date of service: 05/30/21 Principal diagnosis: Gastroparesis and cyclic vomiting Interval history: 26-year-old with history of type 1 diabetes comes in for persistent nausea vomiting. Also cramping. Patient says that he has been taking insulin regularly. Patient also admits to marijuana use. Vomiting about 4-6 times in the last few hours. No diarrhea. Abdominal cramping present. No exacerbating or relieving factors. Pain is about 6 on a scale of 1-10. No shortness of breath. 05/30/2021 continues to have vomiting GI consult appreciated Objective - Constitutional Vitals: Vital Signs - 12hr 05/30/21 05/30/21 10:31 16:47 Pulse Rate 103 H 108 H O2 Sat by Pulse 100 100 Oximetry General appearance: Present: no acute distress, well-nourished - EENT Eyes: PERRL, EOM intact ENT: hearing intact, clear oral mucosa Ears: bilateral: normal - Neck Neck: supple, normal ROM - Respiratory Respiratory effort: normal Respiratory: bilateral: CTA - Breasts Breasts: normal - Cardiovascular Heart rate: 78 Rhythm: regular Heart Sounds: Present: S1 & S2. Absent: gallop, rub Extremities: pulses intact, No edema, normal color, Full ROM - Gastrointestinal General gastrointestinal: Present: soft, non-tender, non-distended, normal bowel sounds - Genitourinary Male genitourinary: normal - Integumentary Integumentary: clear, warm, dry - Musculoskeletal Musculoskeletal: 1, strength equal bilaterally - Neurologic Neurologic: moves all extremities - Psychiatric Psychiatric: memory intact, appropriate mood/affect, intact judgment & insight - Labs CBC & Chem 7: 05/30/21 08:21 05/30/21 08:21 Labs: Abnormal lab results 05/29/21 05/30/21 05/30/21 Range/Units 08:15 00:24 05:56 WBC (4.5-11.0) K/mm3 RBC (3.65-5.03) M/mm3 MCV (84-94) fl MCH (28-32) pg [place] % (Auto) (0.0-7.3) % [place] # (Auto) (0.0-0.8) K/mm3 Seg Neutrophils % (40.0-70.0) % Seg Neutrophils # (1.8-7.7) K/mm3 Sodium (137-145) mmol/L Glucose (75-100) mg/dL POC Glucose 358 H 185 H (70-105) mg/dL Hemoglobin A1c 13.2 H (4-6) % Albumin (3.9-5) g/dL 05/30/21 05/30/21 05/30/21 Range/Units 07:22 08:21 08:21 WBC 11.2 H (4.5-11.0) K/mm3 RBC 5.56 H (3.65-5.03) M/mm3 MCV 74 L (84-94) fl MCH 24 L (28-32) pg [place] % (Auto) 8.1 H (0.0-7.3) % [place] # (Auto) 0.9 H (0.0-0.8) K/mm3 Seg Neutrophils % 74.9 H (40.0-70.0) % Seg Neutrophils # 8.4 H (1.8-7.7) K/mm3 Sodium 135 L (137-145) mmol/L Glucose 187 H (75-100) mg/dL POC Glucose 226 H (70-105) mg/dL Hemoglobin A1c (4-6) % Albumin 3.8 L (3.9-5) g/dL 05/30/21 05/30/21 Range/Units 10:33 16:49 WBC (4.5-11.0) K/mm3 RBC (3.65-5.03) M/mm3 MCV (84-94) fl MCH (28-32) pg [place] % (Auto) (0.0-7.3) % [place] # (Auto) (0.0-0.8) K/mm3 Seg Neutrophils % (40.0-70.0) % Seg Neutrophils # (1.8-7.7) K/mm3 Sodium (137-145) mmol/L Glucose (75-100) mg/dL POC Glucose 292 H 268 H (70-105) mg/dL Hemoglobin A1c (4-6) % Albumin (3.9-5) g/dL
[2021-05-30] MEDS: LORazepam 2 MG/ML VIAL IV PRN (23:02)
[2021-05-31] MEDS: INSULIN LISPRO 100 UNIT/ML SUB-Q SCH ×4 (00:45→17:39)
[2021-05-31] MEDS: LORazepam 2 MG/ML VIAL IV PRN ×3 (05:54→22:14)
[2021-05-31] MEDS: SODIUM CHLORIDE 0.9% 1000 ML 1,000 ML IV SCH (06:01)
[2021-05-31] MEDS: MULTIVITAMINS ,THERAPEUTIC TAB PO SCH (09:19)
[2021-05-31] MEDS: PANTOPRAZOLE 40 MG INJ IV SCH (09:19)
--- NOTE | 2021-05-31 21:46 | Progress Note ---
Assessment and Plan - Patient Problems (1) Acute gastroenteritis Current Visit: Yes Status: Acute Plan to address problem: Patient initiated on IV fluids IV Reglan and IV Zofran. Possible gastroparesis. Nuclear scan for gastric emptying if necessary Abdominal CAT scan consistent with enteritis Clear liquids for now Improving (2) Uncontrolled diabetes mellitus Current Visit: Yes Status: Acute Qualifiers: Diabetes mellitus type: type 1 Plan to address problem: Frequent Accu-Cheks and high-dose sliding scale coverage for now No DKA (3) Coffee ground emesis Current Visit: Yes Status: Acute Plan to address problem: No further hematemesis GI consult appreciated IV Protonix for now IV fluids for now (4) Tetrahydrocannabinol (THC) dependence Current Visit: Yes Status: Chronic Plan to address problem: Patient counseled about stopping marijuana (5) DVT prophylaxis Current Visit: Yes Status: Acute Plan to address problem: SCDs and GI prophylaxis Subjective Date of service: 05/31/21 Principal diagnosis: Gastroparesis and cyclic vomiting Interval history: 26-year-old with history of type 1 diabetes comes in for persistent nausea vomiting. Also cramping. Patient says that he has been taking insulin regularly. Patient also admits to marijuana use. Vomiting about 4-6 times in the last few hours. No diarrhea. Abdominal cramping present. No exacerbating or relieving factors. Pain is about 6 on a scale of 1-10. No shortness of anais th. 05/30/2021 continues to have vomiting GI consult appreciated 05/31/2021 Still vomiting but better than yesterday Objective - Constitutional Vitals: Vital Signs - 12hr 05/31/21 05/31/21 05/31/21 11:34 11:35 17:20 Temperature 98.9 F Pulse Rate 107 H 110 H 108 H Respiratory 19 Rate Blood Pressure 136/81 O2 Sat by Pulse 99 100 100 Oximetry General appearance: Present: no acute distress, well-nourished - EENT Eyes: PERRL, EOM intact ENT: hearing intact, clear oral mucosa Ears: bilateral: normal - Neck Neck: supple, normal ROM - Respiratory Respiratory effort: normal Respiratory: bilateral: CTA - Breasts Breasts: normal - Cardiovascular Heart rate: 78 Rhythm: regular Heart Sounds: Present: S1 & S2. Absent: gallop, rub Extremities: pulses intact, No edema, normal color, Full ROM - Gastrointestinal General gastrointestinal: Present: soft, non-tender, non-distended, normal bowel sounds - Genitourinary Male genitourinary: normal - Integumentary Integumentary: clear, warm, dry - Musculoskeletal Musculoskeletal: 1, strength equal bilaterally - Neurologic Neurologic: moves all extremities - Psychiatric Psychiatric: memory intact, appropriate mood/affect, intact judgment & insight - Labs CBC & Chem 7: 05/30/21 08:21 05/30/21 08:21 Labs: Abnormal lab results 05/31/21 05/31/21 05/31/21 Range/Units 00:07 06:23 07:35 POC Glucose 297 H 329 H 327 H (70-105) mg/dL 05/31/21 05/31/21 Range/Units 11:35 17:20 POC Glucose 274 H 186 H (70-105) mg/dL
[2021-05-31] MEDS ORDERED: NON-FORMULARY EACH (Insulin Aspart Prot/Aspart(Nf) 100 UNITS/ML Units) SQ SCH (22:00)
[2021-05-31] MEDS: ONDANSETRON 4 MG/2 ML INJ IV PRN (22:15)
[2021-05-31] MEDS: INSULIN NPH/REGULAR 70/30 INJ SUB-Q SCH (23:56)
[2021-06-01] MEDS: INSULIN LISPRO 100 UNIT/ML SUB-Q SCH ×4 (06:09→18:15)
[2021-06-01] MEDS: SODIUM CHLORIDE 0.9% 1000 ML 1,000 ML IV SCH (07:57)
[2021-06-01] MEDS: LORazepam 2 MG/ML VIAL IV PRN ×2 (08:32→14:05)
[2021-06-01] MEDS: INSULIN NPH/REGULAR 70/30 INJ SUB-Q SCH ×2 (09:42→18:14)
[2021-06-01] MEDS: PANTOPRAZOLE 40 MG INJ IV SCH (09:42)
[2021-06-01] MEDS: MULTIVITAMINS ,THERAPEUTIC TAB PO SCH (09:42)
[2021-06-01] MEDS: ONDANSETRON 4 MG/2 ML INJ IV PRN (13:33)
[2021-06-01] MEDS: oxyCODONE /ACETAMINOPHEN 5-325MG TAB PO PRN (13:33)
[2021-06-01 18:02] VITALS: BP 169/93
--- NOTE | 2021-06-01 20:25 | Discharge Summary ---
Providers - Providers Date of Admission: 05/29/21 13:52 Date of discharge: 06/01/21 Attending physician: PETE MOLINA 05/29/21 13:47 Consult to Physician [CONS] Urgent Comment: Consulting Provider: NAT COLES Physician Instructions: Reason For Exam: n/v gi bleed Primary care physician: [employer] Hospitalization Condition: Fair Hospital course: Subjective Date of service: 06/01/21 Principal diagnosis: Gastroparesis and cyclic vomiting Interval history: 26-year-old with history of type 1 diabetes comes in for persistent nausea vomiting. Also cramping. Patient says that he has been taking insulin regularly. Patient also admits to marijuana use. Vomiting about 4-6 times in the last few hours. No diarrhea. Abdominal cramping present. No exacerbating or relieving factors. Pain is about 6 on a scale of 1-10. No shortness of breath. 05/30/2021 continues to have vomiting GI consult appreciated 05/31/2021 Still vomiting but better than yesterday 06/01/2021 Feeling a lot better Able to tolerate solids. We will discharge today Had extensive discussion about his insulin dosage and marijuana usage and smoking. Patient to stop smoking completely. Patient to be discharged on Levemir 18 units subcu at bedtime and Humalog on a sliding scale. Written prescriptions given. Assessment and Plan - Patient Problems (1) Acute gastroenteritis Current Visit: Yes Status: Acute Plan to address problem: Patient initiated on IV fluids IV Reglan and IV Zofran. Possible gastroparesis. Nuclear scan for gastric emptying if necessary Abdominal CAT scan consistent with enteritis Clear liquids for now Improving (2) Uncontrolled diabetes mellitus Current Visit: Yes Status: Acute Qualifiers: Diabetes mellitus type: type 1 Plan to address problem: Frequent Accu-Cheks and high-dose sliding scale coverage for now No DKA (3) Coffee ground emesis Current Visit: Yes Status: Acute Plan to address problem: No further hematemesis GI consult appreciated IV Protonix for now IV fluids for now (4) Tetrahydrocannabinol (THC) dependence Current Visit: Yes Status: Chronic Plan to address problem: Patient counseled about stopping marijuana (5) DVT prophylaxis Current Visit: Yes Status: Acute Plan to address problem: SCDs and GI prophylaxis Disposition: TO HOME OR SELFCARE Final Discharge Diagnosis (Prints w/discharge instructions): Gastroparesis. Uncontrolled diabetes. Intractable vomiting. Marijuana use and dependence. Generalized anxiety disorder. Nicotine dependence Time spent for discharge: 35 minutes - Discharge Diagnoses (1) Acute gastroenteritis Status: Acute Comment: Improved (2) Uncontrolled diabetes mellitus Status: Acute Qualifiers: Diabetes mellitus type: type 1 Comment: Improved (3) Coffee ground emesis Status: Acute (4) Tetrahydrocannabinol (THC) dependence Status: Chronic Comment: Counseled about stopping marijuana use (5) DVT prophylaxis Status: Acute (6) Nicotine dependence Status: Chronic Qualifiers: Nicotine product type: cigarettes Comment: Counseled about stopping smoking Time spent on smoking cessation 12 minutes Time spent on marijuana cessation 10 minutes Core Measure Documentation - Palliative Care Palliative Care/ Comfort Measures: Not Applicable - Core Measures Any of the following diagnoses?: none Exam - Constitutional Vitals: Temp Pulse Resp BP Pulse Ox 99.1 F 104 H 19 169/93 100 06/01/21 10:24 06/01/21 10:24 06/01/21 10:24 06/01/21 10:24 06/01/21 10:24 General appearance: Present: no acute distress, well-nourished - EENT Eyes: Present: PERRL ENT: hearing intact, clear oral mucosa - Neck Neck: Present: supple, normal ROM - Respiratory Respiratory effort: normal Respiratory: bilateral: CTA - Cardiovascular Heart rate: 78 Rhythm: regular Heart Sounds: Present: S1 & S2. Absent: rub, click - Extremities Extremities: no ischemia, pulses intact, pulses symmetrical, No edema Peripheral Pulses: within normal limits - Abdominal General gastrointestinal: Present: soft, non-tender, non-distended, normal bowel sounds Male genitourinary: Present: normal - Integumentary Integumentary: Present: clear, warm, dry - Musculoskeletal Musculoskeletal: gait normal, strength equal bilaterally - Psychiatric Psychiatric: appropriate mood/affect, intact judgment & insight - Neurologic Neurologic: CNII-XII intact, moves all extremities - Allied Health Allied health notes reviewed: nursing, case management Plan Activity: no restrictions Diet: diabetic Follow up with: PRIMARY CARE, [Primary Care Provider] - 3-5 Days
[2021-06-02] MEDS ORDERED: PANTOPRAZOLE 40 MG TAB PO SCH (07:30)
== END 2021-06-01 21:20 | disposition home or self-care (01) ==
LOC: ED 06:37 → 3A 13:52
PROVIDERS: ADMIT Internal Medicine; ATTEND Internal Medicine
DX: K52.9 Noninfective gastroenteritis and colitis, unspecified (principal); K92.0 Hematemesis; E86.0 Dehydration; I10 Essential (primary) hypertension; E11.9 Type 2 diabetes mellitus without complications; F12.20 Cannabis dependence, uncomplicated; F17.210 Nicotine dependence, cigarettes, uncomplicated; R03.0 Elevated blood-pressure reading, without diagnosis of hypertension; Z87.898 Personal history of other specified conditions; Z79.4 Long term (current) use of insulin; Z79.82 Long term (current) use of aspirin; Z79.899 Other long term (current) drug therapy; Z98.890 Other specified postprocedural states
CPT/HCPCS: 36415; 71045; 74177; 80053; 80307; 81001; 82805; 82962; 83036; 83735; 85025; 93005; 96361; 96372; 96374; 96375; 96376; 99285; C9113; G0378; J1200; J1630; J2060; J2270; J2405; J2765; J7030; J7120; Q9967; J1815